=== PATIENT | male | born 1935 | race Two or more races ===

== ENCOUNTER 2018-12-03 06:18 | Inpatient (IN) | payer MEDICARE, OTHER ==
[~2018-12-03] VITALS: Ht 167.6 cm; Wt 71.2 kg
--- NOTE | 2018-12-03 07:24 | NUR ---
RN NOTES REPORT GIVEN TO AM NURSE FOR CONTINUITY OF CARE, PATIENT STABLE AT THIS TIME, REPOSITIONED FOR COMFORT, DAUGHTER AT BEDSIDE, PATIENT IS GABONESE SPEAKING.
--- NOTE | 2018-12-03 07:40 | NUR ---
CHIROPRACTOR SOLE PRACTITIONER NOTES PATIENT RECEIVED RESTING INSIDE ROOM. SLEEPING, EASILY AROUSABLE THROUGH VERBAL AND TACTILE STIMULI. BREATHING EVEN AND UNLABORED. NO ACUTE DISTRESS AT THIS TIME. [place] NP MADE AWARE OF PATIENT ARRIVAL. AWAITING ADMITTING ORDERS. DAUGHTER, ALEX AT BEDSIDE. WILL CONTINUE TO MONITOR. BED LOCKED AND IN LOW POSITION. BILATERAL UPPER SIDE RAILS UP AND LOCKED. CALL LIGHT WITHIN EASY REACH
[2018-12-03 08:00] VITALS: BP 112/59
--- NOTE | 2018-12-03 08:30 | NUR ---
BUSINESS ACCOUNT MANAGER NOTES PATIENT ADMITTED TO HOSPITAL AND REPORTED THAT THE REASON THEY CAME TO THE ER IS BECAUSE OF REDNESS ON RIGHT LEG. ALSO REPORTED THAT PATIENT HAD CATARACT REMOVAL ON OCT 2018. SKIN ASSESSMENT DONE, NO REDNESS OR SWELLING NOTED ON BLE. PERRLA. NO WHITISH DISCOLORATION NOTED ON RIGHT EYE. CRISELDA BYERS FELLER OPERATOR PRESENT IN UNIT, WILL COME AND SEE PATIENT. WILL CONTINUE TO MONITOR
[2018-12-03] MEDS ORDERED: PRED5DRO17 RIGHTEYE (08:42)
[2018-12-03] MEDS ORDERED: DICL2.5D RIGHTEYE (08:42)
[2018-12-03] MEDS ORDERED: MAGNESIUM HYDROXIDE 30 ML UDC PO PRN (10:30)
[2018-12-03] MEDS ORDERED: ACETAMINOPHEN 325 MG TABLET PO PRN (10:30)
[2018-12-03] MEDS ORDERED: MAG HYDROX/AL HYDROX/SIMETH 30 ML UDC PO PRN (10:30)
[2018-12-03] MEDS ORDERED: ONDANSETRON HCL/PF 4 MG/2 ML VIAL IVP PRN (10:30)
[2018-12-03] MEDS ORDERED: Z GUARD REMEDY 2 OZ OINT TP PRN (10:30)
[2018-12-03] MEDS ORDERED: HYDROCODONE/APAP 5/325MG 1 EACH TABLET PO PRN (10:30)
[2018-12-03 11:29] LABS: BASOPHILS # (AUTO) 0.1 /CMM (0.0-0.2); BASOPHILS % (AUTO) 0.9 % (0.0-2.0); EOSINOPHILS % (AUTO) 3.4 % (0.0-6.0); HEMATOCRIT 41 % (39-51); HEMOGLOBIN 13.7 g/dL (13.5-17.5); LYMPHOCYTES # (AUTO) 1.3 /CMM (0.8-4.8); MEAN CORPUSCULAR HGB CONC 33 g/dl (31.0-36.0); MEAN CORPUSCULAR VOLUME 87 fL (80-96); MONOCYTES # (AUTO) 0.4 /CMM (0.1-1.30); MONOCYTES % (AUTO) 7.3 % (2.0-12.0); NEUTROPHILS # (AUTO) 3.8 /CMM (1.8-8.9); NEUTROPHILS % (AUTO) 65.4 % (43.0-81.0); PLATELET COUNT (AUTO) 268 /CMM (150-450); RED BLOOD CELL COUNT(AUTO) 4.75 MIL/uL (4.5-6.0); WHITE BLOOD COUNT (AUTO) 5.8 K/uL (4.3-11.0)
[2018-12-03 11:35] LABS: ALANINE AMINOTRANSFERASE 14 U/L (12-78); ALBUMIN 2.7 g/dL (3.4-5.0); ALKALINE PHOSPHATASE 118 U/L (46-116); ASPARTATE AMINOTRANSFERASE 14 U/L (15-37); BILIRUBIN,TOTAL 0.4 mg/dL (0.2-1.0); CARBON DIOXIDE 30 mmol/L (21-32); CHLORIDE 106 mmol/L (98-107); CREATININE 0.8 mg/dL (0.6-1.3); GLUCOSE 89 mg/dL (74-106); POTASSIUM 3.7 mmol/L (3.5-5.1); SODIUM SERUM 139 mmol/L (136-145); TOTAL PROTEIN, SERUM 8.1 g/dL (6.4-8.2); UREA NITROGEN, BLOOD 21 mg/dL (7-18)
[2018-12-03 11:52] LABS: CHOLESTEROL 155 mg/dL (<200); HDL CHOLESTEROL 26 mg/dL (40-60); LDL 113 mg/dL (0-99); THYROID STIMULATING HORMONE 1.268 uIU/mL (0.358-3.74); TRIGLYCERIDES 114 mg/dL (30-150)
[2018-12-03] MEDS: ENOXAPARIN SODIUM 80 MG/0.8 ML DISP.SYRIN SQ SCH (13:43)
[2018-12-03 16:00] VITALS: BP 111/59
--- NOTE | 2018-12-03 18:35 | NUR ---
LPN CMA NOTES PATIENT RESTING INSIDE ROOM. SLEEPING, EASILY AROUSABLE THROUGH VERBAL AND TACTILE STIMULI. BREATHING EVEN AND UNLABORED. DENIES ANY PAIN OR DISCOMFORT AT THIS TIME. NO CHANGES IN LOC NOTED. PATIENT CALM AND RELAXED. ALL NURSING NEEDS ATTENDED AND MET. DUE MEDICATIONS GIVEN AND TOLERATED WELL. CONTINUE WITH TELEMETRY, SSIS ARCHITECT IN PLACE. SR WITH EPISODES OF INVERTED T WAVES, RATE 60-63. WILL ENDORSE TO INCOMING SHIFT FOR BONIFACIO. BED LOCKED AND IN LOW POSITION. BILATERAL UPPER SIDE RAILS UP AND LOCKED. CALL LIGHT WITHIN EASY REACH
--- NOTE | 2018-12-03 19:00 | NUR ---
FREIGHT CAR REPAIRER OPENING NOTES Received patient A/O x4, Malagasy speakin, on Armstrong's position on bed. On RA, no SOB/respiratory distress noted. On tele monitoring with SR with BBB. With DVT pump on L leg. With bearable 1/10 pain on the R leg, no swelling noted. Kept patient on comfortable position. Encouraged patient to verbalized for worsening pain. Kept bed low and locked, call light at bedside. Will continue to monitor accordingly.
[2018-12-03 20:00] VITALS: BP 110/56
[2018-12-04] VITALS: BP_SYST 106; BP_SYST 96; BP_DIAS 49; BP_DIAS 65
[2018-12-04] MEDS: ENOXAPARIN SODIUM 80 MG/0.8 ML DISP.SYRIN SQ SCH ×2 (00:07→12:26)
[2018-12-04 04:00] VITALS: BP 104/49
--- NOTE | 2018-12-04 06:03 | NUR ---
ACID SPLICER NOTES Patient asleep on bed on semi-Armstrong's position on bed. On RA, no SOB/respiratory distress noted. Denies discomfort at this time. Due meds given as ordered, no ASE noted. All nursing needs attended. No new complaints made. Endorsed to the next shift. Addendum: 12/04/18 at 0607 by KENNETH PEREZ RN On tele monitor with Sinus Bradycardia 58-59. Patient remained asymptomatic at this time.
[2018-12-04 06:37] LABS: BASOPHILS % (AUTO) 0.9 % (0.0-2.0); EOSINOPHILS % (AUTO) 4.1 % (0.0-6.0); HEMATOCRIT 38 % (39-51); LYMPHOCYTES # (AUTO) 1.3 /CMM (0.8-4.8); MEAN CORPUSCULAR HGB CONC 34 g/dl (31.0-36.0); MEAN CORPUSCULAR VOLUME 85 fL (80-96); MONOCYTES # (AUTO) 0.4 /CMM (0.1-1.30); MONOCYTES % (AUTO) 7.6 % (2.0-12.0); NEUTROPHILS # (AUTO) 3.7 /CMM (1.8-8.9); NEUTROPHILS % (AUTO) 64.4 % (43.0-81.0); PLATELET COUNT (AUTO) 275 /CMM (150-450); WHITE BLOOD COUNT (AUTO) 5.7 K/uL (4.3-11.0)
[2018-12-04 06:54] LABS: CALCIUM, SERUM 8.5 mg/dL (8.5-10.1); CARBON DIOXIDE 27 mmol/L (21-32); CHLORIDE 107 mmol/L (98-107); CREATININE 0.8 mg/dL (0.6-1.3); GLUCOSE 91 mg/dL (74-106); MAGNESIUM 2.1 mg/dL (1.8-2.4); PHOSPHORUS 3.1 mg/dL (2.5-4.9); POTASSIUM 3.7 mmol/L (3.5-5.1); SODIUM SERUM 143 mmol/L (136-145); UREA NITROGEN, BLOOD 23 mg/dL (7-18)
--- NOTE | 2018-12-04 07:27 | NUR ---
FOLDER SEAMER AUTOMATIC NOTES PATIENT RECEIVED RESTING INSIDE ROOM, SLEEPING, EASILY AROUSABLE THROUGH VERBAL AND TACTILE STIMULI. BREATHING EVEN AND UNLABORED. NO ACUTE DISTRESS AT THIS TIME. DENIES ANY PAIN OR DISCOMFORT. NO CHANGES IN LOC NOTED. PATIENT CALM AND RELAXED. WILL CONTINUE TO MONITOR. BED LOCKED AND IN LOW POSITION. BILATERAL UPPER SIDE RAILS UP AND LOCKED. CALL LIGHT WITHIN EASY REACH
[2018-12-04 08:00] VITALS: BP 109/60
[2018-12-04 16:00] VITALS: BP 118/64
--- NOTE | 2018-12-04 18:42 | NUR ---
MS RN NOTES PATIENT RESTING INSIDE ROOM. AWAKE, ALERT AND ORIENTED, VERBALLY RESPONSIVE AND RESPONDS TO VERBAL AND TACTILE STIMULI. BREATHING EVEN AND UNLABORED. NO CHANGES IN LOC NOTED AT THIS TIME. DENIES ANY PAIN OR DISCOMFORT. NO SWELLING OR REDNESS NOTED ON LOWER EXTREMITIES, PATIENT AMBULATORY, ABLE TO AMBULATE UNIT HALLWAY SAFELY. ALL NURSING NEEDS ATTENDED AND MET. PATIENT KEPT CLEAN, DRY AND COMFORTABLE. WILL ENDORSE TO INCOMING SHIFT FOR BONIFACIO. BED LOCKED AND IN LOW POSITION. BILATERAL UPPER SIDE RAILS UP AND LOCKED. CALL LIGHT WITHIN EASY REACH
--- NOTE | 2018-12-04 19:40 | NUR ---
RN OPENING NOTES RECEIVED REPORT FROM [facility] JOSÉ ANTONIO FAJARDO. FOUND Pt AWAKE, RESTING IN BED, WATCHING TV. DAUGHTER VISITING AT BEDSIDE. Pt's RESPIRATIONS EVEN AND UNLABORED. NO S/S OF ACUTE DISTRESS OR SOB NOTED. NO C/O PAIN AT THIS TIME. IV ACCESS ON LAC #20G, SL. SAFETY MEASURES IN PLACE. BED LOW, LOCKED, HOB ELEVATED, SIDE RAILS UP, CALL LIGHT AND BEDSIDE TABLE WITHIN REACH. WILL CONTINUE TO MONITOR Pt's CONDITION AND SAFETY THROUGHOUT THE NIGHT.
[2018-12-04 20:00] VITALS: BP 111/59
[2018-12-05] MEDS: ENOXAPARIN SODIUM 80 MG/0.8 ML DISP.SYRIN SQ SCH ×2 (01:07→13:11)
--- NOTE | 2018-12-05 07:33 | NUR ---
RN CLOSING NOTES NO SIGNIFICANT CHANGES IN Pt's CONDITION. Pt REMAINED STABLE THROUGHOUT THE SHIFT. NO S/S OF ACUTE DISTRESS OR SOB NOTED DURING THE NIGHT. RESPIRATIONS EVEN AND UNLABORED. SAFETY MEASURES IN PLACE. ENDORSED TO DAYSHIFT RN FOR Pt's BONIFACIO.
[2018-12-05 08:00] VITALS: BP 117/71
--- NOTE | 2018-12-05 08:00 | NUR ---
m/s theater usher: initial assessment received pt in bed awake, a/ox4; english speaking only. daughter at bedside to translate. no c/o pain or any discomfort. rle still swelling. rle elevated with pillow. instructed to call for assistance. will continue to monitor.
[2018-12-05] MEDS ORDERED: APIX5TAB PO ×3 (11:02→11:07)
--- NOTE | 2018-12-05 14:41 | NUR ---
RN NOTES PT FOR DISCHARGE TODAY. CALLED AND INFORMED PT'S DAUGHTER ALEX JEAN-BAPTISTE @ [employer] # [phone] AND WILL COME AND TAKE PT'S HOME THIS AFTERNOON.
--- NOTE | 2018-12-05 18:19 | NUR ---
COLD PATCHER NOTES PATIENT DISCHARGED HOME IN STABLE CONDITION. A/O X 4. VITAL SIGNS TAKEN AND RECORDED. PHOTOS OF SKIN CONDITION TAKEN AND FILED ON CHART. BELONGINGS CHECKED, COUNTED AND SIGNED FORM. IV ACCESS AND NAME WRISTBAND REMOVED. HEALTH TEACHINGS GIVEN TO PT AND DAUGHTER ALEX, BOTH VERBALIZED UNDERSTANDING. PRESCRIPTION AND SCHEDULE OF CLINIC APPOINTMENT GIVEN TO DAUGHTER. PT LEFT UNIT @ 1810 VIA WHEELCHAIR ACCOMPANIED BY MANAGER INTERNAL AND PT'S DAUGHTER. CHARGE NURSE AWARE OF DISCHARGE.
== END 2018-12-05 18:00 | disposition home or self-care (01) | DRG 197 ==
LOC: TELE 06:18 → MED 12-04 10:14
PROVIDERS: ADMIT Nurse Practitioner Acute Care; ATTEND Nurse Practitioner Acute Care
DX: I82.411 Acute embolism and thrombosis of right femoral vein (principal); H26.9 Unspecified cataract; Z87.891 Personal history of nicotine dependence
CPT/HCPCS: 36415; 80048-TC; 80053-TC; 80061-TC; 83735-TC; 84100-TC; 84443-TC; 85025-TC; 87081-TC; G0378; J1650

== ENCOUNTER 2020-06-01 18:43 | Inpatient (IN) | payer MEDICARE, OTHER ==
[~2020-06-01] VITALS: Ht 167.6 cm; Wt 78.9 kg
[~2020-06-01 18:43] MED LIST: APIX5TAB PO; DICL2.5D RIGHTEYE; PRED5DRO17 RIGHTEYE
--- NOTE | 2020-06-01 18:43 | NUR ---
PT BIB SELF C/O L LOWER LEG SWELLING FOR 3 DAYS. PT IS AAOX4 QATARI SPEAKING ONLY, NOT IN RESPIRATORY DISTRESS, V/S STABLE, KEPT RESTED AND COMFORTABLE, WILL CONTINUE TO MONITOR.
--- NOTE | 2020-06-01 18:57 | NUR ---
AT BEDSIDE FOR EVAL.
[2020-06-01] MEDS ORDERED: HYDROCODONE/APAP 5/325MG TABLET PO ONE (19:00)
--- NOTE | 2020-06-01 19:00 | NUR ---
IV LINE ESTABLISHED BLOOD DRAWN AND SENT TO LAB.
[2020-06-01 19:14] LABS: BASOPHILS % (AUTO) 0.6 % (0.0-2.0); EOSINOPHILS % (AUTO) 1.9 % (0.0-6.0); HEMATOCRIT 40 % (39-51); HEMOGLOBIN 13.5 g/dL (13.5-17.5); LYMPHOCYTES % (AUTO) 13.9 % (20.0-44.0); MEAN CORPUSCULAR HGB CONC 34 g/dl (31.0-36.0); MEAN CORPUSCULAR VOLUME 88 fL (80-96); MONOCYTES # (AUTO) 0.4 /CMM (0.1-1.30); MONOCYTES % (AUTO) 5.7 % (2.0-12.0); NEUTROPHILS # (AUTO) 5.7 /CMM (1.8-8.9); NEUTROPHILS % (AUTO) 77.9 % (43.0-81.0); PLATELET COUNT (AUTO) 155 /CMM (150-450); RED BLOOD CELL COUNT(AUTO) 4.59 MIL/uL (4.5-6.0); WHITE BLOOD COUNT (AUTO) 7.3 K/uL (4.3-11.0)
[2020-06-01] MEDS ORDERED: HYDROCODONE/APAP 5/325MG TABLET ONE (19:17)
[2020-06-01 19:23] LABS: CARBON DIOXIDE 26 mmol/L (21-32); CHLORIDE 107 mmol/L (98-107); GLUCOSE 126 mg/dL (74-106); SODIUM SERUM 140 mmol/L (136-145); UREA NITROGEN, BLOOD 33 mg/dL (7-18)
--- NOTE | 2020-06-01 19:28 | NUR ---
PT MEDICATED. AND HOOKED TO MONITOR AND PULSE OX. VSS.
--- NOTE | 2020-06-01 19:31 | NUR ---
PER EMT HR IS HIGH 40'S. STATED MD AWARE. EKG ORDERED AND TROP LEVEL WELL.
[2020-06-01 19:36] LABS: ALANINE AMINOTRANSFERASE 19 U/L (12-78); ALBUMIN 2.8 g/dL (3.4-5.0); ALKALINE PHOSPHATASE 94 U/L (46-116); ASPARTATE AMINOTRANSFERASE 22 U/L (15-37); B-TYPE NATRIURETIC PEPTIDE 352 PG/ML (0-125); BILIRUBIN,DIRECT 0.1 mg/dL (0.0-0.2); BILIRUBIN,TOTAL 0.6 mg/dL (0.2-1.0); TOTAL PROTEIN, SERUM 8.1 g/dL (6.4-8.2)
--- NOTE | 2020-06-01 19:45 | NUR ---
US AT BEDSIDE
--- NOTE | 2020-06-01 20:17 | NUR ---
PT'S DAUGHTER, ALEX. STATED HE IS NOT ON BLOOD THINNERS. ALSO STATED HIS HR IS ALWAYS BEEN SABAS. MD AT BEDSIDE UPDATING PT'S DAUGHTER.
--- NOTE | 2020-06-01 20:19 | NUR ---
ASIA SWABBED AND SENT TO LAB.
--- NOTE | 2020-06-01 20:28 | NUR ---
US SPEAKING TO . PT POSITIVE FOR DVT L LEG. WILL BE STARTED ON HEPARIN.
[2020-06-01] MEDS ORDERED: HEPARIN INFUSION/D5W 500 ML IV PRN (20:30)
[2020-06-01] MEDS ORDERED: HEPARIN INFUSION/D5W 500 ML IV ONE (20:42)
[2020-06-01] MEDS ORDERED: HEPARIN SODIUM, PORCINE 5000 UNITS/1 ML VIAL ONE (20:50)
[2020-06-01] MEDS ORDERED: HEPARIN SODIUM, PORCINE 5000 UNITS/1 ML VIAL IV ONE (21:00)
--- NOTE | 2020-06-01 21:02 | NUR ---
STAMPING DIE MAKER BENCH NOTE: Received patient on heparin drip. Heparin drip started at 2102 in the ER. Heparin initiated at units/Hr 1450. aPTT 28.3, PT 10.8, INR 1.07, platelets 155. HCT 40, Hgb 135. Will assess for bleeding and continue to monitor.
--- NOTE | 2020-06-01 22:12 | NUR ---
REPORT GIVEN TO CLARIBEL CHOU FOR BONIFACIO
[2020-06-01 22:38] VITALS: BP 137/80
--- NOTE | 2020-06-01 22:38 | NUR ---
MICA MINER BLASTING ADMITTING NOTE: Received report from ER nurse, Charlie. Received patient on a gurney, awake and alert. Noted left leg edema, +2. Cap refill <3 seconds on all extremities and peripheral pulses present. Patient rates pain 7 on a 0-10 numerical scale and describes it as aching. Patient breathing well on room air. Breath sounds clear, breathing unlabored, and even. No SOB. No distress. Skin is intact, patient appears to be well nourished. Observed patient ambulate to the restroom. Patient ambulates steady. IV access on left AC, 18g. On heparin drip, started in the ER. Initial rate at 1450. Oriented patient to his room and educated patient on the use of the call light. Patient verbalized understanding. Safety precaution is in place, bed is in lowest position, brakes are on, side rails x2 are up, and call light is within reach. Will continue to monitor.
--- NOTE | 2020-06-01 22:45 | NUR ---
PT TRANSFERED PER ACLS PROTOCOL
[2020-06-01] MEDS ORDERED: ACETAMINOPHEN 325 MG TABLET PO PRN (23:00)
[2020-06-01] MEDS ORDERED: MAGNESIUM HYDROXIDE 30 ML UDC PO PRN (23:00)
[2020-06-01] MEDS ORDERED: ONDANSETRON HCL/PF 4 MG/2 ML VIAL IVP PRN (23:00)
[2020-06-01] MEDS ORDERED: MAG HYDROX/AL HYDROX/SIMETH 30 ML UDC PO PRN (23:00)
[2020-06-01] MEDS ORDERED: prednisoLONE ACETATE 1% SUSP 5 ML BOTTLE RIGHTEYE SCH (23:00)
[2020-06-01] MEDS ORDERED: Z GUARD REMEDY 2 OZ OINT TP PRN (23:00)
[2020-06-01] MEDS ORDERED: ZOLPIDEM TARTRATE 5 MG TABLET PO PRN (23:00)
[2020-06-01] MEDS ORDERED: HYDROCODONE/APAP 5/325MG TABLET PO PRN (23:00)
[2020-06-01 23:22] VITALS: BP 137/80
[2020-06-02] VITALS: BP 112/59
--- NOTE | 2020-06-02 03:21 | NUR ---
MS RN NOTE: Blood was drawn but still waiting for PTT result. Result is "pending."
--- NOTE | 2020-06-02 03:30 | NUR ---
ROVER TENDER NOTE: PTT result still pending.
--- NOTE | 2020-06-02 03:38 | NUR ---
FOOTWEAR SALES ASSOCIATE NOTE: PTT resulted in 103.2. Per weight based heparin dosing orders, hold heparin for one hour, then decrease drip by 3 units.
[2020-06-02 04:00] VITALS: BP 118/64
--- NOTE | 2020-06-02 04:00 | NUR ---
HYDRO OPERATOR NOTE: Heparin infusing at 1200 units/hr per heparin protocol. Will continue to monitor and assess for bleeding.
[2020-06-02 06:24] LABS: BASOPHILS % (AUTO) 0.7 % (0.0-2.0); EOSINOPHILS % (AUTO) 2.2 % (0.0-6.0); HEMATOCRIT 41 % (39-51); HEMOGLOBIN 13.5 g/dL (13.5-17.5); LYMPHOCYTES # (AUTO) 1.4 /CMM (0.8-4.8); LYMPHOCYTES % (AUTO) 21.3 % (20.0-44.0); MEAN CORPUSCULAR HGB CONC 33 g/dl (31.0-36.0); MEAN CORPUSCULAR VOLUME 88 fL (80-96); MONOCYTES # (AUTO) 0.5 /CMM (0.1-1.30); MONOCYTES % (AUTO) 7.3 % (2.0-12.0); NEUTROPHILS # (AUTO) 4.5 /CMM (1.8-8.9); NEUTROPHILS % (AUTO) 68.5 % (43.0-81.0); PLATELET COUNT (AUTO) 140 /CMM (150-450); RED BLOOD CELL COUNT(AUTO) 4.64 MIL/uL (4.5-6.0); WHITE BLOOD COUNT (AUTO) 6.5 K/uL (4.3-11.0)
--- NOTE | 2020-06-02 06:38 | NUR ---
UNDERWATER ROBOTICIST CLOSING NOTE: Patient in bed sleeping but easily aroused. Patient on room air and breathing well. No SOB or respiratory distress noted. Patient able to ambulate to the restroom. Heparin drip running at 1200 units/her per Heparin protocol. No bleeding noted. PTT ordered for 0900. Safety precaution is in place, bed in the lowest, brakes are on, side rails x2 are up, and call light is within reach. Will endorse to next shift.
[2020-06-02 06:42] LABS: CALCIUM, SERUM 8.3 mg/dL (8.5-10.1); CREATININE 0.7 mg/dL (0.6-1.3); PHOSPHORUS 3.1 mg/dL (2.5-4.9); POTASSIUM 3.5 mmol/L (3.5-5.1)
--- NOTE | 2020-06-02 07:25 | NUR ---
SCALE ADJUSTER/MED RECON PATIENT REPORTED NO HOME MEDICATION. CALLED AND SPOKE WITH ALEX-DAUGHTER, VERIFIED INFORMATION OBTAINED FROM THE PATIENT. PRIMARY RN TO NOTIFY MD FOR BONIFACIO. PHARMACY AWARE.
--- NOTE | 2020-06-02 07:30 | NUR ---
TELE/RN OPENING NOTES Received patient resting in bed, A&O x 4, romansh speaking. No complaints of pain and discomfort noted at this time. Breathing even and non-labored on RA, no SOB noted. No cardiac distress noted. On tele monitor, reading SB 51. IV access noted on L AC #18 , patent and intact, and running heparin at 1200 u/hr per protocol. No s/s of infection, bleeding, or infiltration. L leg edema noted, +2 pitting. Sensation from all peripheral extremities intact. Bed locked to its lowest position, side rails x 2 up, instructed patient to use call light when in need of assistance. Will continue to monitor for any changes of condition.
[2020-06-02 08:00] VITALS: BP 136/92
--- NOTE | 2020-06-02 08:00 | NUR ---
TELE/RN NOTES Asked Dr. Mendoza regarding whether to continue ER order of heparin drip for patient, no new orders yet. Referred to charge nurse, states Dr. Jain will look at case and will see if whether to continue drip order on the floor.
[2020-06-02] MEDS: DICLOFENAC 0.1% OPTH DROPS 5 ML BOTTLE RIGHTEYE SCH ×2 (08:56→09:00)
[2020-06-02] MEDS ORDERED: ENOXAPARIN SODIUM 80 MG/0.8 ML DISP.SYRIN SQ SCH (09:00)
--- NOTE | 2020-06-02 09:45 | NUR ---
TELE/RN NOTES Non-administered diclofenac eyedrops, med recon nurse clarified with family regarding medication, states patient does not use it. Notified MD.
--- NOTE | 2020-06-02 10:00 | NUR ---
TELE/RN NOTES Received PTT results from 0900, 65.1. Per protocol, there are no dosage adjustments (no changes), heparin drip remains to run at 1200 u/hr, PTT will be taken the next day. Followed protocol order, checked by charge nurse. Will continue to monitor for any changes in condition.
[2020-06-02] MEDS: ATORVASTATIN 10 MG TABLET PO SCH (10:42)
--- NOTE | 2020-06-02 11:04 | NUR ---
TELE/RN NOTE Pharmacy brought in new label to scan for heparin drip, still using the heparin bag from ER.
[2020-06-02] MEDS: HEPARIN INFUSION/D5W 500 ML IV PRN ×2 (11:11→19:07)
--- NOTE | 2020-06-02 12:34 | NUR ---
MS/RN NOTES Patient states he does not use diclofenac eyedrops, notified Dr. Mendoza at bedside, orders to discontinue it. Order carried out.
--- NOTE | 2020-06-02 15:02 | NUR ---
MS/RN NOTES Patient remains stable on heparin drip 1200 u/hr = 24 ml/hr, no bleeding noted. Will continue to monitor for any changes of condition.
[2020-06-02 16:00] VITALS: BP 120/68
--- NOTE | 2020-06-02 18:44 | NUR ---
MS/RN CLOSING NOTE Patient resting in bed, remains stable. VSS, afebrile, no SOB noted, no bleeding noted. Breathing even and non-labored on RA. No respiratory or cardiac distress noted. Denies any pain/discomfort throughout shift. IV access noted on L AC #18, patent and intact, running heparin drip 1200 u/hr (24 ml/hr), no bleeding on site noted. PTT will be taken in the morning. Patient is ambulatory, instructed patient to use call light when in need of assistance. Fall precautions maintained. Will endorse to night clerk.
--- NOTE | 2020-06-02 20:00 | NUR ---
MS RN NOTE: Patient in bed resting, awake and alert. Patient is English speaking only. Patient able to make needs known. Patient denies pain or discomfort at this time. Patient on room air. Breathing well, no sob, no respiratory distress. Breathing even and unlabored. Patient on heparin drip at 1200 units/hr, no signs of bleeding. IV access on Left AC 18 gauge, patent, intact, no infiltration, or redness. Safety precaution is in place, bed is in the lowest level, brakes are on, side rails x2 are up, and call light is within reach. Will continue to monitor.
[2020-06-02 20:43] VITALS: BP 118/56
--- NOTE | 2020-06-03 00:39 | NUR ---
MS RN NOTE: Endorsed patient to Maximiliano for continuity of care.
--- NOTE | 2020-06-03 00:40 | NUR ---
MS NOTE report recieved form stacy callejas. pt seen resting in bed with eyes closed in no apparent distress. heparin drip infusing to left ac #18. no s/s of bleeding or infiltration. will cont to monitor.
--- NOTE | 2020-06-03 07:06 | NUR ---
MS RN NOTE CLOSING: PT IN BED RESTING. IN NO APPARENT DISTRESS. NO S/S OF BLEEDING HEPARIN STILL INFUSING AT 1200 UNITS PER HOUR. TO LEFT AC 18 GUAGE. NO S/S OF INFILTRATOIN SAFETY PRECAUTIONS IN PLACE BED LOW LOCKED SRX2 WILL ENDORSE TO AM SHIFT. CALL LIGTH IN REACH.
--- NOTE | 2020-06-03 07:30 | NUR ---
RN OPENING NOTES RECEIVED PT IN BED. AWAKE ALERT AND ORIENTED X 3. THOUGH HE IS MOLDOVAN SPEAKING ONLY. NO CARDIAC OR RESPIRATORY DISTRESS NOTED. NO SOB NOTED. SATURATING WELL ON ROOM AIR. BREATHING EVEN AND UNLABORED. PT IS AMBULATORY WITH STEADY GAIT. IV ACCESS NOTED ON L AC G18. INTACT AND PATENT AND FLUSHING WELL. HEPARIN DRIP IS CURRENTLY INFUSING AT 1200 UNITS/HR. PT HAS NO S/S OF BLEEDING NOTED. SAFETY PRECAUTIONS IN PLACE BED LOW LOCKED SRX2. BED ALARM ON. CALL LIGHT WITHIN REACH. WILL CONT TO MONITOR.
--- NOTE | 2020-06-03 07:31 | NUR ---
HEPARIN DRIP HEPARIN DRIP CURRENTLY STILL INFUSING AT 1200 UNITS/HR. PTT THIS AM NOTED AT 68.9. PER HEPARIN DRIP PROTOCOLS NO CHANGES NEEDS TO BE MADE WITH DOSING. WILL CONTINUE WITH 1200 UNITS/HR. NO S/S OF BLEEDING NOTED WITH PT.
[2020-06-03 08:00] VITALS: BP 143/78
[2020-06-03] MEDS: ATORVASTATIN 10 MG TABLET PO SCH (08:17)
--- NOTE | 2020-06-03 11:50 | NUR ---
D/C HEPARIN DRIP PER DR. LAW D/C HEPARIN DRIP. AND HE WILL START PT ON XARELTO. NOTED AND CARRIED OUT.
[2020-06-03] MEDS ORDERED: RIVAROXABAN 15 MG TABLET PO SCH (14:00)
--- NOTE | 2020-06-03 15:30 | NUR ---
CALLED DAUGHTER CALLED DAUGHTER TO NOTIFY OF PTS DISCHARGE. PER DAUGHTER, SHE WILL PICK PT UP AROUND 5PM TODAY.
--- NOTE | 2020-06-03 16:00 | NUR ---
BODY CHECK BODY CHECK DONE. PTS SKIN IS INTACT. NO SKIN BREAKDOWN NOTED.
--- NOTE | 2020-06-03 17:00 | NUR ---
D/C HOME PT WAS PICKED UP BY HIS DAUGHTER VIA PRIVATE CARE. DAUGHTER WAS AMILCAR. ALL D/C INSTRUCTIONS GIVEN TO PT AND DAUGHTER. PRESCRIPTIONS AND D/C PACKET GIVEN AND EXPLAINED TO THE DAUGHTER AND PT WELL. PT AND RP VERBALIZED UNDERSTANDING. INSTRUCTED THAT IF PT EXPERIENCES THE SAME SYMPTOMS AGAIN, SOB OR CHEST PAIN TO SEEK MEDICAL ATTENT OR GO TO THE NEAREST ER. PT AND RP UNDERSTOOD. PT IS AWAKE ALERT AND ORIENTED X 3. THOUGH HE IS HEBREW SPEAKING ONLY. NO CARDIAC OR RESPIRATORY DISTRESS NOTED. NO SOB NOTED. SATURATING WELL ON ROOM AIR. BREATHING EVEN AND UNLABORED. PT IS AMBULATORY WITH STEADY GAIT. IV ACCESS NOTED ON L AC G18 WAS REMOVED. NO BLEEDING NOTED. PT LEFT IN STABLE CONDITION. ALL BELONGINGS BROUGHT BY THE PT AND INVENTORY DONE WELL. INVENTORY AND D/C PAPER WORKS SIGNED BY THE PT.
== END 2020-06-03 17:00 | disposition home or self-care (01) | DRG 280 ==
LOC: ER 18:48 → EDBD 21:58 → TELE 21:58 → MED 06-02 10:08
PROVIDERS: ADMIT Family Medicine
DX: I82.402 Acute embolism and thrombosis of unspecified deep veins of left lower extremity (principal); I21.A1 Myocardial infarction type 2; N17.0 Acute kidney failure with tubular necrosis; E44.0 Moderate protein-calorie malnutrition; J98.11 Atelectasis; I82.502 Chronic embolism and thrombosis of unspecified deep veins of left lower extremity; I11.0 Hypertensive heart disease with heart failure; I50.9 Heart failure, unspecified; Z87.891 Personal history of nicotine dependence; Z98.890 Other specified postprocedural states; Z79.899 Other long term (current) drug therapy; Z88.0 Allergy status to penicillin; R73.9 Hyperglycemia, unspecified; H26.9 Unspecified cataract; Z98.41 Cataract extraction status, right eye
CPT/HCPCS: 36415; 71045-TC; 80048-TC; 80061-TC; 80076-TC; 83735-TC; 83880; 84100-TC; 84484-TC; 85025-TC; 85730-TC; 87081-TC; 93307-TC; 93971-TC; C9803-CS; G0378; J1644

== ENCOUNTER 2020-07-15 12:54 | Emergency (ER) | payer MEDICARE, OTHER ==
[~2020-07-15] VITALS: Ht 167.6 cm; Wt 80.7 kg
--- NOTE | 2020-07-15 13:10 | NUR ---
ER BED 4 PT BIB SELF. CHIEF COMPLAINT OF RLQ ABD PAIN 3/10 AND RLE PAIN 6/10. NO DISTRESS NOTED. VS CHECKED, IV STARTED. BLOOD DRAW DONE. AWAITING TO BE SEEN BY MD.
[2020-07-15 13:23] LABS: BASOPHILS % (AUTO) 0.7 % (0.0-2.0); EOSINOPHILS % (AUTO) 2.4 % (0.0-6.0); HEMATOCRIT 40 % (39-51); HEMOGLOBIN 13.6 g/dL (13.5-17.5); LYMPHOCYTES # (AUTO) 1.3 /CMM (0.8-4.8); LYMPHOCYTES % (AUTO) 17.4 % (20.0-44.0); MEAN CORPUSCULAR HGB CONC 34 g/dl (31.0-36.0); MEAN CORPUSCULAR VOLUME 86 fL (80-96); MONOCYTES # (AUTO) 0.9 /CMM (0.1-1.30); MONOCYTES % (AUTO) 12.5 % (2.0-12.0); PLATELET COUNT (AUTO) 200 /CMM (150-450); RED BLOOD CELL COUNT(AUTO) 4.64 MIL/uL (4.5-6.0); WHITE BLOOD COUNT (AUTO) 7.4 K/uL (4.3-11.0)
--- NOTE | 2020-07-15 13:25 | NUR ---
DOPPLER VENOUS DOPPLER OF RLE COMPLETED.
[2020-07-15 13:31] LABS: CALCIUM, SERUM 8.5 mg/dL (8.5-10.1); CREATININE 1.1 mg/dL (0.6-1.3); POTASSIUM 3.7 mmol/L (3.5-5.1)
[2020-07-15 13:37] LABS: BILIRUBIN,DIRECT 0.2 mg/dL (0.0-0.2); BILIRUBIN,TOTAL 1.2 mg/dL (0.2-1.0); TOTAL PROTEIN, SERUM 8.1 g/dL (6.4-8.2)
[2020-07-15] MEDS ORDERED: ACETAMINOPHEN ES 500 MG TABLET ONE (13:50)
[2020-07-15 13:52] LABS: APPEARANCE,URINE Clear (CLEAR); BILIRUBIN,URINE Negative (NEGATIVE); BLOOD, URINE Negative Ery/uL (NEGATIVE); COLOR,URINE Yellow (YELLOW); KETONES,URINE Negative (NEGATIVE); LEUKOCYTE ESTERASE ,URINE Negative (NEGATIVE); NITRITE, URINE Negative (NEGATIVE); PROTEIN,URINE 100 mg/dl (NEGATIVE); UGLUCOSE Negative (NEGATIVE)
[2020-07-15 13:54] LABS: BACTERIA,URINE Few /HPF (None Seen); MUCUS,URINE Few /LPF (None Seen); RBC,URINE 0-1 /HPF (0-2); SQUAMOUS EPITHELIAL CELL,UR Many /HPF (None Seen)
[2020-07-15] MEDS ORDERED: RIVA10TA PO (13:54)
[2020-07-15] MEDS ORDERED: ACETAMINOPHEN ES 500 MG TABLET PO ONE (14:00)
--- NOTE | 2020-07-15 14:08 | NUR ---
D/C HOME Patient discharged to home in stable condition. Written and verbal after care instructions given. Patient verbalizes understanding of instruction.IV removed. Catheter intact and site benign. Pressure and 4x4 applied to site. No bleeding noted.
[2020-07-15 14:09] VITALS: BP 118/77
== END 2020-07-15 14:10 | disposition home or self-care (01) ==
LOC: ER 12:59
DX: M79.661 Pain in right lower leg (principal); R10.31 Right lower quadrant pain; Z90.89 Acquired absence of other organs; Z98.890 Other specified postprocedural states; Z88.0 Allergy status to penicillin; Z79.899 Other long term (current) drug therapy
CPT/HCPCS: 36415; 71045-TC; 80048-TC; 80076-TC; 81000-TC; 83690-TC; 85025-TC; 85730-TC; 93971-TC

== ENCOUNTER 2022-09-10 09:56 | Emergency (ER) | payer MEDICARE, OTHER ==
[~2022-09-10] VITALS: Ht 165.1 cm; Wt 72.6 kg
[~2022-09-10 09:56] MED LIST changes: -APIX5TAB PO; -DICL2.5D RIGHTEYE; -PRED5DRO17 RIGHTEYE; +RIVA10TA PO
--- NOTE | 2022-09-10 10:10 | NUR ---
BIB Daughter from Home "He has been having flu-like symptoms wednesday - now worse. Fever and blood in urine"
--- NOTE | 2022-09-10 10:15 | NUR ---
ESTABLISHED IV LINE 20G LEFT AC
[2022-09-10] MEDS ORDERED: CEFEPIME 1 GM in IV D5W 50 ML IV ONE (11:00)
[2022-09-10] MEDS ORDERED: VANCOMYCIN 1 GM in IV D5W 250 ML IV ONE (11:00)
--- NOTE | 2022-09-10 11:25 | NUR ---
BLOOD SAMPLE OBTAINED SENT TO LAB
[2022-09-10] MEDS ORDERED: APIX5TAB PO (11:34)
[2022-09-10] MEDS ORDERED: ATOR10TA PO (11:34)
[2022-09-10 11:42] LABS: BASOPHILS % (AUTO) 0.4 % (0.0-2.0); HEMATOCRIT 41 % (39-51); HEMOGLOBIN 13.9 g/dL (13.5-17.5); LYMPHOCYTES # (AUTO) 0.7 K/uL (0.8-4.8); LYMPHOCYTES % (AUTO) 7.8 % (20.0-44.0); MEAN CORPUSCULAR HGB CONC 34 g/dl (31.0-36.0); MEAN CORPUSCULAR VOLUME 87 fL (80-96); MONOCYTES # (AUTO) 0.7 K/uL (0.1-1.30); MONOCYTES % (AUTO) 8.4 % (2.0-12.0); NEUTROPHILS # (AUTO) 7.1 K/uL (1.8-8.9); NEUTROPHILS % (AUTO) 83.4 % (43.0-81.0); PLATELET COUNT (AUTO) 157 K/uL (150-450); WHITE BLOOD COUNT (AUTO) 8.5 K/uL (4.3-11.0)
--- NOTE | 2022-09-10 11:43 | NUR ---
COVID SWAB COLLECTED AND SENT TO LAB.
--- NOTE | 2022-09-10 12:16 | NUR ---
URINE SAMPLE OBTAINED SENT TO LAB
[2022-09-10 12:55] LABS: CALCIUM, SERUM 8.9 mg/dL (8.5-10.1); CARBON DIOXIDE 26 mmol/L (21-32); CHLORIDE 101 mmol/L (98-107); CREATININE 1.1 mg/dL (0.6-1.3); GLUCOSE 125 mg/dL (74-106); POTASSIUM 3.4 mmol/L (3.5-5.1); SODIUM SERUM 136 mmol/L (136-145); UREA NITROGEN, BLOOD 14 mg/dL (7-18)
[2022-09-10 12:58] LABS: ALANINE AMINOTRANSFERASE 18 U/L (12-78); ALBUMIN 3.3 g/dL (3.4-5.0); ALKALINE PHOSPHATASE 97 U/L (46-116); ASPARTATE AMINOTRANSFERASE 25 U/L (15-37); BILIRUBIN,DIRECT 0.2 mg/dL (0.0-0.2); BILIRUBIN,TOTAL 0.8 mg/dL (0.2-1.0); TOTAL PROTEIN, SERUM 8.6 g/dL (6.4-8.2)
[2022-09-10 13:45] LABS: BILIRUBIN,URINE NEGATIVE (NEGATIVE); COLOR,URINE YELLOW (YELLOW); LEUKOCYTE ESTERASE ,URINE NEGATIVE (NEGATIVE); NITRITE, URINE NEGATIVE (NEGATIVE); PROTEIN,URINE 1+ mg/dl (NEGATIVE); UGLUCOSE NEGATIVE (NEGATIVE)
[2022-09-10] MEDS ORDERED: GUAI1TBM19 PO (13:50)
[2022-09-10] MEDS ORDERED: BENZ-13 PO (13:50)
--- NOTE | 2022-09-10 14:04 | NUR ---
Patient discharged to home in stable condition. Written and verbal after care instructions given. Patient verbalizes understanding of instruction.
--- NOTE | 2022-09-10 14:04 | NUR ---
IV removed. Catheter intact and site benign. Pressure and 4x4 applied to site. No bleeding noted.
[2022-09-10 14:08] VITALS: BP 126/64
[2022-09-10 14:08] LABS: BACTERIA,URINE Rare /HPF (None Seen); SQUAMOUS EPITHELIAL CELL,UR Few /HPF (None Seen); WBC,URINE 0-2 /HPF (0-3)
== END 2022-09-10 14:04 | disposition home or self-care (01) ==
LOC: ER 10:01
DX: J06.9 Acute upper respiratory infection, unspecified (principal); B97.89 Other viral agents as the cause of diseases classified elsewhere; Z20.822 Contact with and (suspected) exposure to COVID-19; Z86.718 Personal history of other venous thrombosis and embolism; Z79.01 Long term (current) use of anticoagulants; Z88.0 Allergy status to penicillin; J98.11 Atelectasis; R50.9 Fever, unspecified; R05.9 Cough, unspecified; R31.9 Hematuria, unspecified; Z98.41 Cataract extraction status, right eye; Z98.890 Other specified postprocedural states
CPT/HCPCS: 99285; 96365; 71045; 96375; 87426; 93005; 84145; 85025; 80048; 87086; 83605; 80076; 81001; 36415; 84484; 85730; 87040 ×2; 87081; J3370; J7060; J0692; C9803

== ENCOUNTER 2022-12-01 17:46 | Emergency (ER) | payer MEDICARE, OTHER ==
[~2022-12-01] VITALS: Ht 167.6 cm; Wt 77.6 kg
[~2022-12-01 17:46] MED LIST changes: +APIX5TAB PO; +ATOR10TA PO; +BENZ-13 PO; +GUAI1TBM19 PO; -RIVA10TA PO
--- NOTE | 2022-12-01 20:19 | NUR ---
BIBDAUGHTER. L TESTICLE SWELLING & PAIN WITH HEMATURIA X 5 DAYS. AAOX4. Vitals Checked
--- NOTE | 2022-12-01 20:20 | NUR ---
Urine sample collected and sent to lab.
--- NOTE | 2022-12-01 21:20 | NUR ---
Blood drawn and sent to lab.
[2022-12-01] MEDS ORDERED: LEVOFLOXACIN 500 MG /D5W 100ML 500 MG/100 ML PIGGYBACK IV ONE (21:30)
[2022-12-01] MEDS ORDERED: LEVOFLOXACIN 500 MG /D5W 100ML 100 ML IV ONE (21:33)
[2022-12-01 21:39] LABS: BASOPHILS # (AUTO) 0.1 K/uL (0.0-0.2); BASOPHILS % (AUTO) 0.7 % (0.0-2.0); EOSINOPHILS % (AUTO) 4.8 % (0.0-6.0); HEMATOCRIT 34 % (39-51); LYMPHOCYTES # (AUTO) 1.7 K/uL (0.8-4.8); MEAN CORPUSCULAR HGB CONC 33 g/dl (31.0-36.0); MEAN CORPUSCULAR VOLUME 81 fL (80-96); MONOCYTES # (AUTO) 0.8 K/uL (0.1-1.30); MONOCYTES % (AUTO) 10.5 % (2.0-12.0); NEUTROPHILS # (AUTO) 4.6 K/uL (1.8-8.9); PLATELET COUNT (AUTO) 287 K/uL (150-450); RED BLOOD CELL COUNT(AUTO) 4.15 MIL/uL (4.5-6.0); WHITE BLOOD COUNT (AUTO) 7.6 K/uL (4.3-11.0)
[2022-12-01 22:10] LABS: CALCIUM, SERUM 8.7 mg/dL (8.5-10.1); CARBON DIOXIDE 28 mmol/L (21-32); CHLORIDE 105 mmol/L (98-107); CREATININE 0.8 mg/dL (0.6-1.3); GLUCOSE 102 mg/dL (74-106); POTASSIUM 4.1 mmol/L (3.5-5.1); SODIUM SERUM 138 mmol/L (136-145); UREA NITROGEN, BLOOD 19 mg/dL (7-18)
[2022-12-01 22:36] LABS: BILIRUBIN,URINE NEGATIVE (NEGATIVE); COLOR,URINE YELLOW (YELLOW); LEUKOCYTE ESTERASE ,URINE NEGATIVE (NEGATIVE); NITRITE, URINE NEGATIVE (NEGATIVE); PROTEIN,URINE TRACE mg/dl (NEGATIVE); UGLUCOSE NEGATIVE (NEGATIVE); UROBILINOGEN,URINE 0.2 EU/dL (0.2)
[2022-12-01] MEDS ORDERED: LEVO500T90 PO (22:36)
[2022-12-01 22:56] VITALS: BP 138/68
--- NOTE | 2022-12-01 22:56 | NUR ---
IV removed. Catheter intact and site benign. Pressure and 4x4 applied to site. No bleeding noted.
--- NOTE | 2022-12-01 22:56 | NUR ---
Patient discharged to home in stable condition. Written and verbal after care instructions given. Patient verbalizes understanding of instruction.
[2022-12-01 23:00] LABS: RBC,URINE NONE SEEN /HPF (0-2); WBC,URINE NONE SEEN /HPF (0-3)
[2022-12-01 23:01] LABS: BACTERIA,URINE None seen /HPF (None Seen); SQUAMOUS EPITHELIAL CELL,UR 0-2 /HPF (None Seen)
== END 2022-12-01 22:57 | disposition home or self-care (01) ==
LOC: ER 17:59
DX: N45.1 Epididymitis (principal); Z98.890 Other specified postprocedural states; Z79.899 Other long term (current) drug therapy; Z88.0 Allergy status to penicillin
CPT/HCPCS: 99285; 96365; 76870; 85025; 80048; 81001; 36415; 85730; J1956; A4223

== ENCOUNTER 2023-03-24 19:35 | Inpatient (IN) | payer OTHER, MEDICARE ==
[~2023-03-24] VITALS: Ht 167.6 cm; Wt 75.3 kg
[~2023-03-24 19:35] MED LIST changes: +LEVO500T90 PO
--- NOTE | 2023-03-24 20:42 | NUR ---
Patient AOx4, able to express his concerns. Patietn states he has been feeling nauseous, vomitting (dark and he has also notice blood on penus. Discussed plan of care, patient verbalized agreement.
[2023-03-24] MEDS ORDERED: IV NS 0.9% 1,000 ML BAG IV ONE (21:00)
[2023-03-24] MEDS ORDERED: PANTOPRAZOLE 40 MG VIAL IV ONE (21:00)
[2023-03-24 21:08] LABS: BASOPHILS % (AUTO) 0.1 % (0.0-2.0); EOSINOPHILS % (AUTO) 0.1 % (0.0-6.0); HEMATOCRIT 40 % (39-51); HEMOGLOBIN 12.7 g/dL (13.5-17.5); LYMPHOCYTES # (AUTO) 0.9 K/uL (0.8-4.8); LYMPHOCYTES % (AUTO) 6.6 % (20.0-44.0); MEAN CORPUSCULAR HGB CONC 32 g/dl (31.0-36.0); MEAN CORPUSCULAR VOLUME 75 fL (80-96); MONOCYTES # (AUTO) 1.2 K/uL (0.1-1.30); MONOCYTES % (AUTO) 8.8 % (2.0-12.0); NEUTROPHILS # (AUTO) 11.8 K/uL (1.8-8.9); NEUTROPHILS % (AUTO) 84.4 % (43.0-81.0); PLATELET COUNT (AUTO) 208 K/uL (150-450); RED BLOOD CELL COUNT(AUTO) 5.24 MIL/uL (4.5-6.0)
[2023-03-24] MEDS ORDERED: PANTOPRAZOLE 40 MG VIAL ONE (21:15)
[2023-03-24 21:16] LABS: CALCIUM, SERUM 9.5 mg/dL (8.5-10.1); CARBON DIOXIDE 23 mmol/L (21-32); CHLORIDE 104 mmol/L (98-107); CREATININE 1.6 mg/dL (0.6-1.3); GLUCOSE 136 mg/dL (74-106); POTASSIUM 4.1 mmol/L (3.5-5.1); SODIUM SERUM 141 mmol/L (136-145); UREA NITROGEN, BLOOD 21 mg/dL (7-18)
[2023-03-24 21:22] LABS: ALANINE AMINOTRANSFERASE 19 U/L (12-78); ALBUMIN 3.4 g/dL (3.4-5.0); ALKALINE PHOSPHATASE 132 U/L (46-116); ASPARTATE AMINOTRANSFERASE 20 U/L (15-37); BILIRUBIN,DIRECT 0.2 mg/dL (0.0-0.2); BILIRUBIN,TOTAL 0.9 mg/dL (0.2-1.0); LIPASE 59 U/L (73-393); TOTAL PROTEIN, SERUM 8.8 g/dL (6.4-8.2)
[2023-03-24 21:36] LABS: BAND % (MANUAL) 1 % (0.0-5.0); LYMPHOCYTES % (MANUAL) 6 % (16-48); MONOCYTES % (MANUAL) 10 % (0-11.0); NEUTROPHILS % (MANUAL) 83 (42-76)
[2023-03-24] MEDS ORDERED: ASPIRIN 81 MG TAB.CHEW PO ONE (22:00)
[2023-03-24] MEDS ORDERED: Magnesium 1GM/D5W 100ML PREMIX PIGGYBACK IV ONE (22:00)
[2023-03-24] MEDS ORDERED: Magnesium 1GM/D5W 100ML PREMIX 100 ML IV ONE ×2 (22:04→22:58)
[2023-03-24] MEDS ORDERED: ASPIRIN 81 MG TAB.CHEW ONE (22:05)
--- NOTE | 2023-03-24 22:53 | NUR ---
Kang Inserted, 600 ml urine output. Patient tolerated well
--- NOTE | 2023-03-24 22:55 | NUR ---
Urine collected, sent to lab
[2023-03-24 23:20] LABS: COLOR,URINE RED (YELLOW)
[2023-03-24 23:24] LABS: BACTERIA,URINE Rare /HPF (None Seen); RBC,URINE TOO NUMEROUS TO COUN /HPF (0-2); SQUAMOUS EPITHELIAL CELL,UR Rare /HPF (None Seen); WBC,URINE 0-2 /HPF (0-3)
--- NOTE | 2023-03-24 23:46 | NUR ---
RE PAGED PANEL
[2023-03-25] MEDS ORDERED: ONDANSETRON HCL/PF 4 MG/2 ML VIAL IVP PRN
[2023-03-25] MEDS ORDERED: ACETAMINOPHEN 325 MG TABLET PO PRN
--- NOTE | 2023-03-25 00:01 | NUR ---
RM 114-2
--- NOTE | 2023-03-25 00:31 | NUR ---
Report given to Eunice CHOU/[facility]
[2023-03-25 00:50] LABS: HEMOGLOBIN 10.9 g/dL (13.5-17.5)
[2023-03-25 01:00] VITALS: BP 128/60
--- NOTE | 2023-03-25 01:00 | NUR ---
MINGLER OPERATOR NOTES: RECEIVED REPORT FROM MANOJ CHOU. PT TRANSFERRED TO [facility] FROM ER WITH ACLS PROTOCOL. PLACED IN ROOM 114 BED 2. ACCOMPANIED BY DAUGHTER. PT AWAKE, ALERT/ORIENTED X4 AND VERBALLY RESPONSIVE. ARABIC SPEAKING ONLY. ON ROOM AIR AND PT TOLERATED WELL. O2 SAT 97%. IV ACCESS ON RFA#18G INTACT AND PATENT. NO S/S OF INFILTRATIONS. NO C/O PAIN OR DISCOMFORT. NO ACUTE DISTRESS. INSERTED A NEW ESTEBAN BECAUSE PREVIOUS ON WAS ACCIDENTLY PULLED OUT. STILL NOTED BLOODY URINE. BODY ASSESSMENT DONE. NO OPEN SKIN OR SKIN DISCOLORATION NOTED. ALL SAFETY MEASURES IN PLACE. BED IN LOWEST POSTITION AND LOCKED. SIDE RAILS UP X2, PLACE CALL LIGHT WITH IN REACH. WILL CONTINUE TO MONITOR
--- NOTE | 2023-03-25 01:10 | NUR ---
0110 Patient's daughter Mely accompanied patient and let it known that patient requests to be DNR/DNI and they wish to respect it. RN Eunice witnessed conversation, MELTER LOADER Daily notified.
[2023-03-25] MEDS: IV NS 0.9% 1,000 ML IV PRN ×2 (01:21→20:30)
[2023-03-25 04:00] VITALS: BP 128/75
--- NOTE | 2023-03-25 04:35 | NUR ---
RN NOTES: PT NOTED WITH GROSS HEMATURIA. C/O OF GENERALIZED PAIN. TYLENOL GIVEN. NOTIFIED PACKAGING SPECIALIST EVELYN. ORDER TO INSERT 3 WAY ESTEBAN AND DO CONTINUOUS BLADDER IRRIGATION. ORDER NOTED AND CARRIED OUT.
[2023-03-25] MEDS ORDERED: HYDROMORPHONE 1 MG/1 ML DISP.SYRIN IV PRN (06:00)
--- NOTE | 2023-03-25 06:07 | NUR ---
RN NOTES: PT STILL C/O SEVERE PAIN ON LOWER ABDOMEN. NOTIFIED CAR SHUNTER. CHIQUIS. ORDER- DILAUDID 1MG/1ML INJ.
[2023-03-25 06:27] LABS: BASOPHILS # (AUTO) 0.1 K/uL (0.0-0.2); BASOPHILS % (AUTO) 0.5 % (0.0-2.0); HEMATOCRIT 34 % (39-51); HEMOGLOBIN 11.2 g/dL (13.5-17.5); LYMPHOCYTES # (AUTO) 1.4 K/uL (0.8-4.8); LYMPHOCYTES % (AUTO) 14.5 % (20.0-44.0); MEAN CORPUSCULAR HGB CONC 33 g/dl (31.0-36.0); MEAN CORPUSCULAR VOLUME 76 fL (80-96); MONOCYTES # (AUTO) 1.1 K/uL (0.1-1.30); MONOCYTES % (AUTO) 10.7 % (2.0-12.0); NEUTROPHILS # (AUTO) 7.3 K/uL (1.8-8.9); NEUTROPHILS % (AUTO) 73.3 % (43.0-81.0); PLATELET COUNT (AUTO) 199 K/uL (150-450); WHITE BLOOD COUNT (AUTO) 9.9 K/uL (4.3-11.0)
--- NOTE | 2023-03-25 06:45 | NUR ---
RN CLOSING NOTES: PT SLEEPING IN BED BUT EASILY AROUSABLE, AWAKE, ALERT/ORIENTED X4 AND VERBALLY RESPONSIVE. GREEK SPEAKING ONLY. ON ROOM AIR AND PT TOLERATED WELL. O2 SAT 95%. IV ACCESS ON RFA#18G INTACT AND PATENT. NO S/S OF INFILTRATIONS. NS RUNNING 75CC/H, PT C/O PAIN OR DISCOMFORT DILAUDID GIVEN . FOLLY CATH IN PLACE STILL NOTED BLOODY URINE. ALL SAFETY MEASURES IN PLACE. BED IN LOWEST POSTITION AND LOCKED. SIDE RAILS UP X2, PLACE CALL LIGHT WITH IN REACH. WILL ENDORSE TO MORNING SHIFT NURSE
[2023-03-25 06:57] LABS: IRON, SERUM 63 ug/dl (50-175); TOTAL IRON BINDING CAPACITY 309 ug/dl (250-450)
--- NOTE | 2023-03-25 07:08 | NUR ---
RN NOTES RECEIVED PT ON BED, AWAKE, ALERT/ORIENTED X4 AND VERBALLY RESPONSIVE. TELUGU SPEAKING ONLY. ON ROOM AIR AND PT TOLERATED WELL. O2 SAT 95%. IV ACCESS ON RFA#18G INTACT AND PATENT. NO S/S OF INFILTRATIONS. NS RUNNING 75CC/H, 3 WAY ESTEBAN BLADDER IRRIGATION RUNNING , NOTED LIGHT RRED BLOODY URINE. ALL SAFETY MEASURES IN PLACE. BED IN LOWEST POSITION AND LOCKED. SIDE RAILS UP X2, CALL LIGHT WITHIN EASY REACH CONTINUE TO MONITOR.
[2023-03-25 07:09] LABS: PROSTATE SPECIFIC ANTIGEN SCR 52.42 ng/mL (0.00-4.00)
[2023-03-25 07:11] LABS: FERRITIN 23 ng/mL (8-388)
[2023-03-25 07:54] LABS: CALCIUM, SERUM 8.7 mg/dL (8.5-10.1); CREATININE 1.3 mg/dL (0.6-1.3); MAGNESIUM 2.4 mg/dL (1.8-2.4); PHOSPHORUS 2.9 mg/dL (2.5-4.9); POTASSIUM 3.9 mmol/L (3.5-5.1)
[2023-03-25 08:00] VITALS: BP 146/91
[2023-03-25] MEDS: PANTOPRAZOLE 40 MG VIAL IV SCH ×2 (08:29→21:14)
[2023-03-25] MEDS ORDERED: IV NS 0.9% 250 ML IV ONE (11:31)
[2023-03-25] MEDS ORDERED: IOHEXOL-350 100 ML VIAL IV ONE (11:31)
[2023-03-25] MEDS ORDERED: CT SWABBABLE VALVE TRANS SET 1 EA INFUS.SET MC ONE (11:31)
[2023-03-25 12:00] VITALS: BP 107/56
--- NOTE | 2023-03-25 12:00 | NUR ---
RN NOTES LARGE AMOUNT OF BLOOD CLOTS NOTED DURING BLADDER IRRIGATION , DR WARNER NOTIFED, CONTINUE TO MONITOR
[2023-03-25 13:11] LABS: HEMOGLOBIN 9.9 g/dL (13.5-17.5)
[2023-03-25 16:00] VITALS: BP 107/56
[2023-03-25] MEDS: FERROUS SULFATE (325 MG) 325 MG/TAB TABLET PO SCH (17:33)
[2023-03-25] MEDS: BICALUTAMIDE 50 MG TABLET PO SCH (17:33)
--- NOTE | 2023-03-25 18:11 | NUR ---
RN NOTES PT ON BLADDER IRRIGATION , LIGHT RED URINE OUT PUT NOTED, VSS STABLE , PT DENIES ANY DISTESS , SUPPORTIVE FAMILY AT THE BEDSIDE, WILL ENDORSE TO TENTER FRAME BACK TENDER NURSE FOR CONTINUITY OF CARE .
--- NOTE | 2023-03-25 19:10 | NUR ---
ACCOUNTING ADMINISTRATOR OPENING NOTES - RECEIVED PATIENT AWAKE IN BED, DAUGHTER PRESENT IN ROOM. A/O X4, BARROW AND GREENLANDIC SPEAKING. BREATHING EVEN AND NON-LABORED ON ROOM AIR. DENIES PAIN, NAUSEA OR VOMITING AT THIS TIME. 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 HAS THE FF IV ACCESS: RIGHT ANTECUBITAL #20G AND SALINE LOCKED; RIGHT FOREARM #18G WITH NS RUNNING AT 75 ML/HR. NO S/S OF INFILTRATION NOTED. HAS 3-WAY ESTEBAN CATHETER CONNECTED TO CONTINUOUS BLADDER IRRIGATION DRAINING HEMATURIA TO BAG BY GRAVITY. SAFETY PRECAUTIONS IN PLACE: BED LOCKED AND IN LOW POSITION, SIDE RAILS UP X3, CALL LIGHT WITHIN REACH. WILL CONTINUE PLAN OF CARE.
[2023-03-25 20:00] VITALS: BP_SYST 100; BP_SYST 91; BP_DIAS 49; BP_DIAS 50
[2023-03-25] MEDS: ATORVASTATIN 10 MG TABLET PO SCH (21:14)
[2023-03-26] VITALS (14 sets, daily range): BP systolic 98–107; BP diastolic 43–86
[2023-03-26 05:52] LABS: BASOPHILS % (AUTO) 0.5 % (0.0-2.0); HEMATOCRIT 24 % (39-51); HEMOGLOBIN 7.7 g/dL (13.5-17.5); LYMPHOCYTES # (AUTO) 1.4 K/uL (0.8-4.8); LYMPHOCYTES % (AUTO) 16.3 % (20.0-44.0); MEAN CORPUSCULAR HGB CONC 32 g/dl (31.0-36.0); MEAN CORPUSCULAR VOLUME 77 fL (80-96); MONOCYTES % (AUTO) 11.9 % (2.0-12.0); NEUTROPHILS # (AUTO) 5.9 K/uL (1.8-8.9); NEUTROPHILS % (AUTO) 67.3 % (43.0-81.0); PLATELET COUNT (AUTO) 148 K/uL (150-450); RED BLOOD CELL COUNT(AUTO) 3.13 MIL/uL (4.5-6.0); WHITE BLOOD COUNT (AUTO) 8.7 K/uL (4.3-11.0)
[2023-03-26 06:03] LABS: CALCIUM, SERUM 7.9 mg/dL (8.5-10.1); CREATININE 0.9 mg/dL (0.6-1.3); PHOSPHORUS 2.7 mg/dL (2.5-4.9); POTASSIUM 3.8 mmol/L (3.5-5.1)
--- NOTE | 2023-03-26 06:41 | NUR ---
COMMUTER TRAIN OPERATOR CLOSING NOTES - PATIENT SLEEPING, EASY TO AROUSE. NO CARDIAC OR RESPIRATORY DISTRESS THROUGHOUT THE NIGHT. NO C/O PAIN OR DISCOMFORT. TELE MONITOR SHOWS SINUS RHYTHM WITH BBB AT 70-90 BPM. RIGHT ANTECUBITAL AND RIGHT FOREARM IV ACCESS INTACT, PATENT AND FLUSHING. DARK TO LIGHT RED URINE NOTED WITH CONTINUOUS BLADDER IRRIGATION. KEPT NPO. ALL DUE MEDS GIVEN AND NEEDS ATTENDED. SAFETY PRECAUTIONS MAINTAINED. WILL ENDORSE TO NEXT SHIFT FOR BONIFACIO.
[2023-03-26] MEDS ORDERED: ANESTHESIA TRAY IN PYXIS 1 EA TRAY MC ONE (06:59)
[2023-03-26] MEDS ORDERED: FENTANYL PF 100MCG/2ML AMPUL ONE (07:00)
--- NOTE | 2023-03-26 08:55 | NUR ---
PATIENT ARRIVED FROM OR AT 08:50, AWAKE, ON ROOM AIR WITH SAT 98%. UNDERWENT CYSTOSCOPY W/FULGURATION UNDER GEN ANESTHESIA. CONDITION STABLE, ALERT/ ORIENTED X 4, FAMILY AT BEDSIDE, VS: 105/86, 75, 17, TEMP 98.4. IV ACCESS RIGHT AC AND RIGHT HAND, NS RUNNING AT 75 ML/HR. ESTEBAN CATHETER IN PLACE, DRAINING BY GRAVITY, BLADDER IRRIGATION D/C. SAFETY MEASURES IMPLEMENTED, BED LOCKED AND IN LOWEST POSITION, CALL LIGHT WITHIN REACH, WILL CONTINUE TO MONITOR.
[2023-03-26] MEDS: BICALUTAMIDE 50 MG TABLET PO SCH (09:10)
[2023-03-26] MEDS: PANTOPRAZOLE 40 MG VIAL IV SCH ×2 (09:10→21:24)
[2023-03-26] MEDS: FERROUS SULFATE (325 MG) 325 MG/TAB TABLET PO SCH ×2 (09:10→16:24)
[2023-03-26] MEDS: IV NS 0.9% 1,000 ML IV PRN (12:36)
--- NOTE | 2023-03-26 18:27 | NUR ---
RN CLOSING NOTE PATIENT SLEEPING, EASY TO AROUSE. NO C/O PAIN OR DISCOMFORT. TELE MONITOR SHOWS SINUS RHYTHM WITH BBB AT 70-90 BPM. RIGHT ANTECUBITAL AND RIGHT FOREARM IV ACCESS INTACT, PATENT AND FLUSHING. ALL DUE MEDS GIVEN AND NEEDS ATTENDED. SAFETY PRECAUTIONS MAINTAINED. WILL ENDORSE TO NEXT SHIFT FOR BONIFACIO.
--- NOTE | 2023-03-26 18:57 | NUR ---
PATIENT GETTING ONE BAG RBC TRANSFUSED, CONDITION STABLE, NO DISTRESS NOTED. WILL ENDORSE TO THE NEXT SHIFT NURSE CATHY TO CONTINUE.
--- NOTE | 2023-03-26 20:00 | NUR ---
FICTION WRITER opening NOTE RECEIVED PATIENT IN BED AWAKE A/OX3, S/P CYSTOSCOPY NO C/O PAIN OR DISCOMFORT. TELE MONITOR SHOWS SINUS RHYTHM AT 70-90 BPM NO SOB NO DISTRESS NOTED ON R/A 97%. RIGHT ANTECUBITAL AND RIGHT FOREARM IV ACCESS INTACT, PATENT AND FLUSHING.PRBC ON PROGRESS AT THIS TIME NO ASE NOTED .WITH F/C INTACT AND PATENT WITH YELLOWISH URINE OUTPUT. ALL DUE MEDS GIVEN AND NEEDS ATTENDED. SAFETY PRECAUTIONS MAINTAINED. WILL CONTINUE TO MONITOR PTS .DAUGHTER AT BEDSIDE UPDATED WITH PTS CONDITION.
[2023-03-26] MEDS: ATORVASTATIN 10 MG TABLET PO SCH (21:24)
--- NOTE | 2023-03-26 22:52 | NUR ---
PNEUMATIC JACK OPERATOR NOTES PRBC COMPLETED AT THIS TIME 2252HRS WITH NO ASE NOTED V/S STABLE AFEBRILE.
--- NOTE | 2023-03-26 23:00 | NUR ---
telecasting engineer notes ivf ns at 75cc/hr in progress.
[2023-03-27] VITALS (11 sets, daily range): BP systolic 92–121; BP diastolic 42–61
--- NOTE | 2023-03-27 06:00 | NUR ---
MOSAICIST NOTES PTS REMAIN IN BED AWAKE ALERT AND RESPONSIVE , V/S STABLE AFEBRILE . ON R/A NO SOB NO DISTRESS NOTED .WILL ENDORSE TO RN DAY SHIFT FOR CONTINUITY OF CARE.
[2023-03-27 06:29] LABS: BASOPHILS % (AUTO) 0.3 % (0.0-2.0); EOSINOPHILS % (AUTO) 0.4 % (0.0-6.0); HEMATOCRIT 21 % (39-51); HEMOGLOBIN 7.1 g/dL (13.5-17.5); LYMPHOCYTES # (AUTO) 0.9 K/uL (0.8-4.8); LYMPHOCYTES % (AUTO) 11.6 % (20.0-44.0); MEAN CORPUSCULAR HGB CONC 33 g/dl (31.0-36.0); MEAN CORPUSCULAR VOLUME 77 fL (80-96); MONOCYTES # (AUTO) 0.7 K/uL (0.1-1.30); MONOCYTES % (AUTO) 9.4 % (2.0-12.0); NEUTROPHILS # (AUTO) 5.9 K/uL (1.8-8.9); NEUTROPHILS % (AUTO) 78.3 % (43.0-81.0); PLATELET COUNT (AUTO) 118 K/uL (150-450); RED BLOOD CELL COUNT(AUTO) 2.78 MIL/uL (4.5-6.0); WHITE BLOOD COUNT (AUTO) 7.5 K/uL (4.3-11.0)
[2023-03-27 06:46] LABS: ALANINE AMINOTRANSFERASE 16 U/L (12-78); ALBUMIN 1.9 g/dL (3.4-5.0); ALKALINE PHOSPHATASE 72 U/L (46-116); ASPARTATE AMINOTRANSFERASE 16 U/L (15-37); BILIRUBIN,TOTAL 0.5 mg/dL (0.2-1.0); CALCIUM, SERUM 7.7 mg/dL (8.5-10.1); CARBON DIOXIDE 25 mmol/L (21-32); CHLORIDE 109 mmol/L (98-107); CREATININE 0.9 mg/dL (0.6-1.3); GLUCOSE 110 mg/dL (74-106); MAGNESIUM 1.9 mg/dL (1.8-2.4); PHOSPHORUS 2.8 mg/dL (2.5-4.9); SODIUM SERUM 141 mmol/L (136-145); TOTAL PROTEIN, SERUM 5.3 g/dL (6.4-8.2); UREA NITROGEN, BLOOD 13 mg/dL (7-18)
[2023-03-27] MEDS: IV NS 0.9% 1,000 ML IV PRN ×2 (06:52→23:32)
--- NOTE | 2023-03-27 07:05 | NUR ---
[employer] SALESPERSON OPEN NOTE: ALERT AND ORIENTED TIMES 4. UNLABORED BREATHING AT ROOM AIR. SKI TOPPER SINUS SABAS 54. RIGHT FOREARM IV G18 PATENT WITH IVF OF NS 75ML/HR. RIGHT AC SALINE LOCKED G20. ESTEBAN CATHETER WITH YELLOW URINE. HOB ELEVATED, BILATERAL HALF SIDE RAILS UP X2. BED IN LOW POSITION, LOCKED AND EXIT ALARM ON. CALL LIGHT IN REACH. DAUGHTER AB BED SIDE.
[2023-03-27] MEDS: PANTOPRAZOLE 40 MG VIAL IV SCH ×2 (08:43→20:58)
[2023-03-27] MEDS: BICALUTAMIDE 50 MG TABLET PO SCH (08:43)
[2023-03-27] MEDS: FERROUS SULFATE (325 MG) 325 MG/TAB TABLET PO SCH ×2 (08:44→16:57)
--- NOTE | 2023-03-27 10:15 | NUR ---
1000: PEDRO WARNER INFORMED PATIENT HGB 7.1 HCT 21 PLATELETS 118. BP 94/45 HR 55 TODAY. PER PEDRO WARNER WILL ORDER ONE MORE UNIT OF PRBC, KEEP PATIENT ONE MORE DAY AND WILL BE TALKING TO FAMILY TO INFORM.
--- NOTE | 2023-03-27 11:02 | NUR ---
LAB INFORMED OR ORDERS FOR TYPE AND SCREEN AND BLOOD TRANSFUSION ORDERS, PER ETHEL WILL LET US KNOW WHEN BLOOD READY. PATIENT AND DAUGHTER STATED THE PEDRO WARNER ALREADY TALKED TO THEM AND ARE AWARE OF ORDERS.
--- NOTE | 2023-03-27 18:50 | NUR ---
MED SURGE RN CLOSING NOTE: ALERT X4. UNLABORED BREATHING AT ROOM AIR. SKIN IS WARM AND DRY. MOIST ORAL MUCOSA. RIGHT FOREARM IV WITH IVF OF NS75ML/HR, PATENT NO S/S OF COMPLICATIONS. HOB ELEVATED. BILATERAL HALF SIDE RAILS UP X2. BED IN LOW POSITION, LOCKED , EXIT ALARM SUPERVISOR ENGINES ROAD LIGHT IN REACH. DAUGHTER AT BEDSIDE.
--- NOTE | 2023-03-27 20:00 | NUR ---
LEAD COATER OPENING NOTE RECEIVED PATIENT IN BED AWAKE A/OX3, S/P BLOOD TRANSFUSION , NO ASE NOTED.NO SOB NO DISTRESS NOTED NO C/O PAIN OR DISCOMFORT. TELE MONITOR SHOWS SINUS RHYTHM AT 70-80 BPM ON R/A 97%. RIGHT ANTECUBITAL AND RIGHT FOREARM IV ACCESS INTACT.IV FLUID OF NS AT 75CC/HR INFUSING WELL .WITH F/C INTACT AND PATENT WITH YELLOWISH URINE OUTPUT. ALL DUE MEDS GIVEN AND NEEDS ATTENDED.DAUGHTER AT BEDSIDE UPDATED WITH PTS CONDITION .SAFETY PRECAUTIONS MAINTAINED. WILL CONTINUE TO MONITOR PTS .
[2023-03-27] MEDS: ATORVASTATIN 10 MG TABLET PO SCH (21:05)
[2023-03-28] VITALS: BP 100/72
[2023-03-28 04:00] VITALS: BP 102/72
[2023-03-28 06:15] LABS: BASOPHILS % (AUTO) 0.6 % (0.0-2.0); EOSINOPHILS % (AUTO) 5.1 % (0.0-6.0); HEMATOCRIT 25 % (39-51); HEMOGLOBIN 8.3 g/dL (13.5-17.5); LYMPHOCYTES # (AUTO) 1.3 K/uL (0.8-4.8); LYMPHOCYTES % (AUTO) 18.2 % (20.0-44.0); MEAN CORPUSCULAR HGB CONC 33 g/dl (31.0-36.0); MEAN CORPUSCULAR VOLUME 80 fL (80-96); MONOCYTES # (AUTO) 0.7 K/uL (0.1-1.30); MONOCYTES % (AUTO) 10.8 % (2.0-12.0); NEUTROPHILS # (AUTO) 4.5 K/uL (1.8-8.9); NEUTROPHILS % (AUTO) 65.3 % (43.0-81.0); PLATELET COUNT (AUTO) 130 K/uL (150-450); RED BLOOD CELL COUNT(AUTO) 3.13 MIL/uL (4.5-6.0); WHITE BLOOD COUNT (AUTO) 6.9 K/uL (4.3-11.0)
--- NOTE | 2023-03-28 07:00 | NUR ---
RFID STRATEGIST OPENING NOTE PATIENT AWAKE, ALERT AND ORIENTED X4. PATIENT PORTUGUESE SPEAKING, 02 SAT IN 100%, NO RESPIRATORY DISTRESS NOTED. IV ACCESS TO RIGHT AC #20G, RFA #18 INFUSING NS IV AT 75ML/HR. PATIENT DENIES SOB, AND DENIES PAIN AT PRESENT. F/C DRAINING CLEAR YELLOW URINE. SAFETY MEASURES IN PLACE. BED LOCKED TO THE LOWEST POSITION, CALL LIGHT AND TABLE WITHIN REACH. PATIENT'S DAUGHTER AT BED SIDE. CONT. TO MONITOR.
[2023-03-28 07:03] LABS: CALCIUM, SERUM 7.5 mg/dL (8.5-10.1); CREATININE 0.8 mg/dL (0.6-1.3); MAGNESIUM 1.7 mg/dL (1.8-2.4); PHOSPHORUS 2.8 mg/dL (2.5-4.9); POTASSIUM 3.8 mmol/L (3.5-5.1)
--- NOTE | 2023-03-28 07:10 | NUR ---
BOARD DESIGN ENGINEER NOTES PTS REMAIN IN BED AWAKE ALERT AND RESPONSIVE , V/S STABLE AFEBRILE . ON R/A NO SOB NO DISTRESS NOTED .WILL ENDORSE TO RN DAY SHIFT FOR CONTINUITY OF CARE.
[2023-03-28 08:00] VITALS: BP 109/56
[2023-03-28] MEDS ORDERED: NITR100C6 PO (08:01)
[2023-03-28] MEDS: Magnesium 1GM/D5W 100ML PREMIX 100 ML IV SCH ×2 (08:38→12:01)
[2023-03-28] MEDS: PANTOPRAZOLE 40 MG VIAL IV SCH (08:39)
[2023-03-28] MEDS: FERROUS SULFATE (325 MG) 325 MG/TAB TABLET PO SCH (09:05)
[2023-03-28] MEDS: BICALUTAMIDE 50 MG TABLET PO SCH (09:06)
--- NOTE | 2023-03-28 09:51 | NUR ---
ms rn note per Alvaro Saul dnp ok to keep Kang cath and connect to leg bag and f\u with urologist dr Cerda outpatient
--- NOTE | 2023-03-28 13:00 | NUR ---
FELT CEMENTER DISCHARGE NOTE PATIENT A/A/OX4. 02 SAT IN ROOM AIR 99%, NO S/S OF RESPIRATORY DISTRESS NOTED, PATIENT DENIES PAIN. DISCHARGE INSTRUCTIONS GIVEN TO PATIENT AND PATIENT'S DAUGHTER (ALEX), ALL DISCHARGE INSTRUCTIONS GIVEN IN [place], INCLUDING MEDICATION TO CONTINUE AT HOME, NAME, PURPOSE AND POSSIBLE SIDE EFFECT. PATIENT IS GOING HOME WITH ESTEBAN CATHETER IN PLACE, ESTEBAN CATHETER CARE AND LEG BAG CARE EXPLAINED TO PATIENT AND PATIENT'S DAUGHTER. PATIENT'S DAUGHTER VERBALIZED UNDERSTANDING DISCHARGE INSTRUCTIONS. TWO DIFFERENT ESTEBAN CATHETER BAGS GIVEN, LEG BAG AND DRAINING BAG. ESTEBAN CATH IS DRAINING CLEAR YELLOW URINE. 950ML EMPTIED PRIOR DISCHARGE. PATIENT DENIES PAIN. PATIENT WILL FOLLOW UP UROLOGY APPOINTMENT NEXT WEEK. PATIENT INSTRUCTED IF HE DEVELOPS BLOOD IN URINE, HE NEEDS TO GO TO EMERGENCY ROOM, OR CALL 911. IV ACCESS X2 REMOVED, CATHETER TIP INTACT AND NO S/S OF INFILTRATION NOTED. PRESSURE DRESSING APPLIED. PATIENT IS GOING HOME VIA W/C, ACCOMPANIED BY PATIENT'S DAUGHTER AND STAFF ASSOCIATE DIRECTOR FINANCE.
== END 2023-03-28 13:30 | disposition home or self-care (01) | DRG 952 ==
LOC: ER 19:37 → TELE1 23:07 → MEDSG1 03-27 08:06
PROVIDERS: ADMIT Nurse Practitioner Acute Care; ATTEND Nurse Practitioner Acute Care
PROC: 0TCB8ZZ Extirpation of Matter from Bladder, Via Natural or Artificial Opening Endoscopic (ICD-10-PCS; principal; 2023-03-26)
PROC: 0T5B8ZZ Destruction of Bladder, Via Natural or Artificial Opening Endoscopic (ICD-10-PCS; 2023-03-26)
PROC: 0V508ZZ Destruction of Prostate, Via Natural or Artificial Opening Endoscopic (ICD-10-PCS; 2023-03-26)
PROC: 30233N1 Transfusion of Nonautologous Red Blood Cells into Peripheral Vein, Percutaneous Approach (ICD-10-PCS; 2023-03-26)
DX: I86.2 Pelvic varices (principal); N17.0 Acute kidney failure with tubular necrosis; I21.A1 Myocardial infarction type 2; K29.71 Gastritis, unspecified, with bleeding; K86.2 Cyst of pancreas; N13.30 Unspecified hydronephrosis; D62 Acute posthemorrhagic anemia; N42.1 Congestion and hemorrhage of prostate; N40.1 Benign prostatic hyperplasia with lower urinary tract symptoms; J98.11 Atelectasis; D50.9 Iron deficiency anemia, unspecified; D72.829 Elevated white blood cell count, unspecified; Z88.0 Allergy status to penicillin; Z79.01 Long term (current) use of anticoagulants; Z86.718 Personal history of other venous thrombosis and embolism; Z87.891 Personal history of nicotine dependence; E83.42 Hypomagnesemia; R91.8 Other nonspecific abnormal finding of lung field; N32.89 Other specified disorders of bladder; K21.9 Gastro-esophageal reflux disease without esophagitis; R33.8 Other retention of urine
CPT/HCPCS: 36415; 71045-TC; 74178; 80048-TC; 80053-TC; 80061-TC; 80076-TC; 81001; 82728-TC; 83540-TC; 83690-TC; 83735-TC; 84100-TC; 84153-TC; 84154-TC; 84484-TC; 85025-TC; 85027-TC; 85730-TC; 86850-TC; 87081-TC; 93307-TC; A4217; A4223; C9113; G0378; J1100; J1170; J2405; J2704; J2765; J3010; J3475; J3490; J7030; J7040; J7050; J7060; P9016; Q9967

== ENCOUNTER 2023-07-14 21:19 | Emergency (ER) | payer MEDICARE, OTHER ==
[~2023-07-14] VITALS: Ht 170.2 cm; Wt 74.8 kg
[~2023-07-14 21:19] MED LIST changes: -APIX5TAB PO; -BENZ-13 PO; +FINA5TAB3 PO; -GUAI1TBM19 PO; -LEVO500T90 PO
[2023-07-14 21:57] LABS: BASOPHILS % (AUTO) 0.4 % (0.0-2.0); EOSINOPHILS # (AUTO) 0.2 K/uL (0.0-0.7); EOSINOPHILS % (AUTO) 1.6 % (0.0-6.0); HEMATOCRIT 34 % (39-51); LYMPHOCYTES # (AUTO) 1.2 K/uL (0.8-4.8); LYMPHOCYTES % (AUTO) 11.1 % (20.0-44.0); MEAN CORPUSCULAR HEMOGLOBIN 23 PG (26.0-33.0); MEAN CORPUSCULAR HGB CONC 32 g/dl (31.0-36.0); MEAN CORPUSCULAR VOLUME 72 fL (80-96); MONOCYTES % (AUTO) 9.2 % (2.0-12.0); NEUTROPHILS # (AUTO) 8.1 K/uL (1.8-8.9); NEUTROPHILS % (AUTO) 77.7 % (43.0-81.0); PLATELET COUNT (AUTO) 239 K/uL (150-450); RED BLOOD CELL COUNT(AUTO) 4.76 MIL/uL (4.5-6.0); RED CELL DISTRIBUTION WIDTH 16.8 % (11.5-15.0); WHITE BLOOD COUNT (AUTO) 10.5 K/uL (4.3-11.0)
[2023-07-14 22:04] LABS: CALCIUM, SERUM 8.9 mg/dL (8.5-10.1); CREATININE 0.9 mg/dL (0.6-1.3)
[2023-07-14 22:08] LABS: INR 1.08 (0.91-1.10); PARTIAL THROMBOPLASTIN TIME 33.9 SEC (24.3-34.3); PROTHROMBIN TIME 11.4 SECS (9.2-11.1)
[2023-07-14 22:09] LABS: ALBUMIN 2.9 g/dL (3.4-5.0); BILIRUBIN,DIRECT 0.1 mg/dL (0.0-0.2); BILIRUBIN,TOTAL 0.6 mg/dL (0.2-1.0); TOTAL PROTEIN, SERUM 8.3 g/dL (6.4-8.2)
[2023-07-14 23:07] LABS: APPEARANCE,URINE CLOUDY (CLEAR); BILIRUBIN,URINE NEGATIVE (NEGATIVE); BLOOD, URINE 3+ Ery/uL (NEGATIVE); COLOR,URINE ORANGE (YELLOW); KETONES,URINE NEGATIVE (NEGATIVE); LEUKOCYTE ESTERASE ,URINE 2+ (NEGATIVE); NITRITE, URINE POSITIVE (NEGATIVE); PH,URINE 6.5 (5.0-8.0); PROTEIN,URINE 1+ mg/dl (NEGATIVE); UGLUCOSE NEGATIVE (NEGATIVE); UROBILINOGEN,URINE 0.2 EU/dL (0.2)
[2023-07-14 23:30] LABS: ADD URINE CULTURE YES; BACTERIA,URINE 3+ /HPF (None Seen); MUCUS,URINE Moderate /LPF (None Seen); RBC,URINE 81-100 /HPF (0-2); SQUAMOUS EPITHELIAL CELL,UR None Seen /HPF (None Seen); WBC,URINE TOO NUMEROUS TO COUN /HPF (0-3)
[2023-07-15] MEDS ORDERED: CIPR500T5 PO (00:23)
[2023-07-15 00:47] VITALS: BP 141/71; TEMP 98.5; O2SAT 98
== END 2023-07-15 00:48 | disposition home or self-care (01) ==
LOC: ER 21:24
DX: T83.098A Other mechanical complication of other urinary catheter, initial encounter (principal); N39.0 Urinary tract infection, site not specified; R31.9 Hematuria, unspecified; E78.5 Hyperlipidemia, unspecified; Z79.899 Other long term (current) drug therapy
CPT/HCPCS: 36415; 80048-TC; 80076-TC; 81001; 83690-TC; 85025-TC; 85730-TC; 87086-TC

== ENCOUNTER 2023-08-31 23:27 | Emergency (ER) | payer MEDICARE, OTHER ==
[~2023-08-31] VITALS: Ht 165.1 cm; Wt 74.8 kg
[~2023-08-31 23:27] MED LIST changes: +CIPR500T5 PO
[2023-09-01] VITALS: BP 158/88; TEMP 98
[2023-09-01 00:43] VITALS: O2SAT 99
== END 2023-09-01 00:43 | disposition home or self-care (01) ==
LOC: ER 23:31
DX: T83.091A Other mechanical complication of indwelling urethral catheter, initial encounter (principal); E78.5 Hyperlipidemia, unspecified; Z90.89 Acquired absence of other organs; Z88.0 Allergy status to penicillin

== ENCOUNTER 2023-09-11 16:16 | Emergency (ER) | payer MEDICARE, OTHER ==
[~2023-09-11] VITALS: Ht 165.1 cm; Wt 74.8 kg
[2023-09-11 17:44] LABS: APPEARANCE,URINE CLOUDY (CLEAR); BILIRUBIN,URINE 2+ (NEGATIVE); BLOOD, URINE 3+ Ery/uL (NEGATIVE); COLOR,URINE AMBER (YELLOW); KETONES,URINE TRACE mg/dL (NEGATIVE); LEUKOCYTE ESTERASE ,URINE TRACE (NEGATIVE); NITRITE, URINE POSITIVE (NEGATIVE); PH,URINE 6.5 (5.0-8.0); PROTEIN,URINE 3+ mg/dl (NEGATIVE); UGLUCOSE NEGATIVE (NEGATIVE)
[2023-09-11 17:50] LABS: RBC,URINE TOO NUMEROUS TO COUN /HPF (0-2)
[2023-09-11 17:51] LABS: ADD URINE CULTURE YES; WBC,URINE 0-2 /HPF (0-3)
[2023-09-11 18:00] LABS: BACTERIA,URINE Few /HPF (None Seen); SQUAMOUS EPITHELIAL CELL,UR Few /HPF (None Seen)
[2023-09-11 19:46] VITALS: BP 135/85; TEMP 98.7; O2SAT 100
== END 2023-09-11 18:50 | disposition home or self-care (01) ==
LOC: ER 16:16
DX: N39.0 Urinary tract infection, site not specified (principal); R31.9 Hematuria, unspecified; E78.5 Hyperlipidemia, unspecified; N40.0 Benign prostatic hyperplasia without lower urinary tract symptoms; Z98.890 Other specified postprocedural states; Z79.899 Other long term (current) drug therapy; Z88.0 Allergy status to penicillin
CPT/HCPCS: 81001; 87086-TC

== ENCOUNTER 2023-10-28 20:05 | Inpatient (IN) | payer OTHER, MEDICARE ==
[~2023-10-28] VITALS: Ht 165.1 cm; Wt 86.2 kg
[2023-10-28 23:24] LABS: BASOPHILS % (AUTO) 0.6 % (0.0-2.0); EOSINOPHILS % (AUTO) 0.6 % (0.0-6.0); HEMATOCRIT 32 % (39-51); HEMOGLOBIN 10.1 g/dL (13.5-17.5); LYMPHOCYTES # (AUTO) 0.8 K/uL (0.8-4.8); LYMPHOCYTES % (AUTO) 12.9 % (20.0-44.0); MEAN CORPUSCULAR HEMOGLOBIN 23 PG (26.0-33.0); MEAN CORPUSCULAR HGB CONC 32 g/dl (31.0-36.0); MEAN CORPUSCULAR VOLUME 71 fL (80-96); MONOCYTES # (AUTO) 0.8 K/uL (0.1-1.30); MONOCYTES % (AUTO) 12.1 % (2.0-12.0); NEUTROPHILS # (AUTO) 4.7 K/uL (1.8-8.9); NEUTROPHILS % (AUTO) 73.8 % (43.0-81.0); PLATELET COUNT (AUTO) 189 K/uL (150-450); RED BLOOD CELL COUNT(AUTO) 4.47 MIL/uL (4.5-6.0); RED CELL DISTRIBUTION WIDTH 16.7 % (11.5-15.0); WHITE BLOOD COUNT (AUTO) 6.4 K/uL (4.3-11.0)
[2023-10-28 23:43] LABS: INR 1.09 (0.91-1.10); PARTIAL THROMBOPLASTIN TIME 26.9 SEC (24.3-34.3); PROTHROMBIN TIME 11.5 SECS (9.2-11.1)
[2023-10-28 23:52] LABS: ALANINE AMINOTRANSFERASE 6 U/L (12-78); ALBUMIN 2.8 g/dL (3.4-5.0); ALKALINE PHOSPHATASE 99 U/L (46-116); ASPARTATE AMINOTRANSFERASE 13 U/L (15-37); BILIRUBIN,DIRECT 0.1 mg/dL (0.0-0.2); BILIRUBIN,TOTAL 0.4 mg/dL (0.2-1.0); CALCIUM, SERUM 8.7 mg/dL (8.5-10.1); CARBON DIOXIDE 26 mmol/L (21-32); CHLORIDE 102 mmol/L (98-107); CREATININE 0.9 mg/dL (0.6-1.3); GLUCOSE 102 mg/dL (74-106); POTASSIUM 3.6 mmol/L (3.5-5.1); SODIUM SERUM 136 mmol/L (136-145); TOTAL PROTEIN, SERUM 8.1 g/dL (6.4-8.2); UREA NITROGEN, BLOOD 14 mg/dL (7-18)
[2023-10-29 00:05] LABS: APPEARANCE,URINE SLIGHTLY CLOUDY (CLEAR); BILIRUBIN,URINE NEGATIVE (NEGATIVE); BLOOD, URINE 1+ Ery/uL (NEGATIVE); COLOR,URINE YELLOW (YELLOW); KETONES,URINE NEGATIVE (NEGATIVE); LEUKOCYTE ESTERASE ,URINE 2+ (NEGATIVE); NITRITE, URINE POSITIVE (NEGATIVE); PROTEIN,URINE 1+ mg/dl (NEGATIVE); UGLUCOSE NEGATIVE (NEGATIVE); UROBILINOGEN,URINE 0.2 EU/dL (0.2)
[2023-10-29] MEDS ORDERED: CIPROFLOXACIN IV RTU 400 MG in PREMIX 1 EA IV SCH (00:30)
[2023-10-29] MEDS ORDERED: CIPROFLOXACIN IV RTU 200 ML IV ONE (00:32)
[2023-10-29 00:33] LABS: ADD URINE CULTURE YES; BACTERIA,URINE Few /HPF (None Seen); SQUAMOUS EPITHELIAL CELL,UR Rare /HPF (None Seen)
[2023-10-29 00:49] LABS: ANISOCYTOSIS 1+; BAND % (MANUAL) 4 % (0.0-5.0); BASOPHILS % (MANUAL) 0 % (0.0-2.0); EOSINOPHILS % (MANUAL) 0 % (0-4); LYMPHOCYTES % (MANUAL) 11 % (16-48); MONOCYTES % (MANUAL) 10 % (0-11.0); NEUTROPHILS % (MANUAL) 75 (42-76); PLATELET ESTIMATE ADEQUATE
[2023-10-29] MEDS ORDERED: ZOLPIDEM TARTRATE 5 MG TABLET PO PRN (03:30)
[2023-10-29] MEDS ORDERED: Z GUARD REMEDY 4 OZ OINT TP PRN (03:30)
[2023-10-29] MEDS ORDERED: MAG HYDROX/AL HYDROX/SIMETH 30 ML UDC PO PRN (03:30)
[2023-10-29] MEDS ORDERED: ONDANSETRON HCL/PF 4 MG/2 ML VIAL IVP PRN (03:30)
[2023-10-29] MEDS ORDERED: MAGNESIUM HYDROXIDE 30 ML UDC PO PRN (03:30)
[2023-10-29] MEDS: CIPROFLOXACIN IV RTU 400 MG in PREMIX 1 EA IV SCH ×2 (03:50→15:30)
[2023-10-29 05:36] VITALS: O2SAT 98
[2023-10-29] MEDS ORDERED: METH1TAB69 PO (08:02)
[2023-10-29] MEDS: FINASTERIDE (5 MG) 5 MG TABLET PO SCH (09:00)
[2023-10-29 09:19] LABS: BASOPHILS % (AUTO) 0.7 % (0.0-2.0); EOSINOPHILS % (AUTO) 0.4 % (0.0-6.0); HEMATOCRIT 29 % (39-51); HEMOGLOBIN 9.4 g/dL (13.5-17.5); LYMPHOCYTES # (AUTO) 0.9 K/uL (0.8-4.8); LYMPHOCYTES % (AUTO) 16.8 % (20.0-44.0); MEAN CORPUSCULAR HEMOGLOBIN 23 PG (26.0-33.0); MEAN CORPUSCULAR HGB CONC 32 g/dl (31.0-36.0); MEAN CORPUSCULAR VOLUME 70 fL (80-96); MONOCYTES # (AUTO) 0.9 K/uL (0.1-1.30); NEUTROPHILS # (AUTO) 3.6 K/uL (1.8-8.9); NEUTROPHILS % (AUTO) 66.1 % (43.0-81.0); PLATELET COUNT (AUTO) 183 K/uL (150-450); RED BLOOD CELL COUNT(AUTO) 4.14 MIL/uL (4.5-6.0); RED CELL DISTRIBUTION WIDTH 16.2 % (11.5-15.0); WHITE BLOOD COUNT (AUTO) 5.5 K/uL (4.3-11.0)
[2023-10-29 09:26] LABS: CALCIUM, SERUM 8.4 mg/dL (8.5-10.1); CREATININE 0.9 mg/dL (0.6-1.3); POTASSIUM 3.5 mmol/L (3.5-5.1)
[2023-10-29 09:33] LABS: THYROID STIMULATING HORMONE 0.685 uIU/mL (0.358-3.74)
[2023-10-29 13:23] LABS: BAND % (MANUAL) 1 % (0.0-5.0); NEUTROPHILS % (MANUAL) 67 (42-76)
[2023-10-29 13:24] LABS: ANISOCYTOSIS 1+; BASOPHILS % (MANUAL) 0 % (0.0-2.0); EOSINOPHILS % (MANUAL) 0 % (0-4); HYPOCHROMASIA 1+; LYMPHOCYTES % (MANUAL) 18 % (16-48); MONOCYTES % (MANUAL) 14 % (0-11.0); OVALOCYTES 1+; PLATELET ESTIMATE ADEQUATE
[2023-10-29 20:00] VITALS: BP 126/70; TEMP 100.1; O2SAT 93
[2023-10-29] MEDS: ACETAMINOPHEN 325 MG TABLET PO PRN (20:35)
[2023-10-30] MEDS: CIPROFLOXACIN IV RTU 400 MG in PREMIX 1 EA IV SCH (03:20)
[2023-10-30 07:02] LABS: BASOPHILS % (AUTO) 0.4 % (0.0-2.0); EOSINOPHILS % (AUTO) 0.1 % (0.0-6.0); HEMATOCRIT 30 % (39-51); HEMOGLOBIN 9.7 g/dL (13.5-17.5); LYMPHOCYTES # (AUTO) 1.3 K/uL (0.8-4.8); LYMPHOCYTES % (AUTO) 16.2 % (20.0-44.0); MEAN CORPUSCULAR HEMOGLOBIN 23 PG (26.0-33.0); MEAN CORPUSCULAR HGB CONC 33 g/dl (31.0-36.0); MEAN CORPUSCULAR VOLUME 70 fL (80-96); MONOCYTES # (AUTO) 1.2 K/uL (0.1-1.30); MONOCYTES % (AUTO) 14.1 % (2.0-12.0); NEUTROPHILS # (AUTO) 5.7 K/uL (1.8-8.9); NEUTROPHILS % (AUTO) 69.2 % (43.0-81.0); PLATELET COUNT (AUTO) 171 K/uL (150-450); RED BLOOD CELL COUNT(AUTO) 4.19 MIL/uL (4.5-6.0); RED CELL DISTRIBUTION WIDTH 16.6 % (11.5-15.0); WHITE BLOOD COUNT (AUTO) 8.3 K/uL (4.3-11.0)
[2023-10-30 07:40] LABS: CREATININE 0.8 mg/dL (0.6-1.3); MAGNESIUM 1.8 mg/dL (1.8-2.4); PHOSPHORUS 2.9 mg/dL (2.5-4.9); POTASSIUM 3.3 mmol/L (3.5-5.1)
[2023-10-30 08:00] VITALS: BP 116/56; TEMP 99.3; O2SAT 96
[2023-10-30] MEDS: FINASTERIDE (5 MG) 5 MG TABLET PO SCH (09:00)
[2023-10-30] MEDS ORDERED: POTASSIUM CHLORIDE 20 MEQ TAB.PRT.SR PO ONE (09:00)
[2023-10-30] MEDS: IV NS 0.9% 1,000 ML IV PRN (10:33)
[2023-10-30 12:34] LABS: CALCIUM, SERUM 8.1 mg/dL (8.5-10.1); POTASSIUM 3.4 mmol/L (3.5-5.1)
[2023-10-30 15:37] VITALS: BP 145/54; TEMP 98.8; O2SAT 96
[2023-10-30] MEDS: CIPROFLOXACIN HCL 500 MG TABLET PO SCH (18:15)
[2023-10-30] MEDS: ACETAMINOPHEN 325 MG TABLET PO PRN (18:16)
[2023-10-30 20:00] VITALS: BP 124/53; TEMP 99; O2SAT 95
[2023-10-30] MEDS ORDERED: GUAIFENESIN/D-METHORPHAN HB 5 ML UDC PO PRN (21:00)
[2023-10-31] MEDS: CIPROFLOXACIN HCL 500 MG TABLET PO SCH ×2 (05:53→17:23)
[2023-10-31 07:30] VITALS: BP 113/49; TEMP 98.8; O2SAT 97
[2023-10-31 08:10] LABS: CALCIUM, SERUM 8.3 mg/dL (8.5-10.1); CHLORIDE 98 mmol/L (98-107); CREATININE 0.8 mg/dL (0.6-1.3); GLUCOSE 96 mg/dL (74-106); MAGNESIUM 1.9 mg/dL (1.8-2.4); PHOSPHORUS 2.8 mg/dL (2.5-4.9); POTASSIUM 3.7 mmol/L (3.5-5.1); SODIUM SERUM 132 mmol/L (136-145); UREA NITROGEN, BLOOD 13 mg/dL (7-18)
[2023-10-31] MEDS: FINASTERIDE (5 MG) 5 MG TABLET PO SCH ×2 (08:19→08:21)
[2023-10-31 08:39] LABS: CARBON DIOXIDE 23 mmol/L (21-32)
[2023-10-31 09:37] LABS: THYROID STIMULATING HORMONE 2.629 uIU/mL (0.358-3.74)
[2023-10-31] MEDS: IV NS 0.9% 1,000 ML IV PRN (14:16)
[2023-10-31 16:00] VITALS: BP 117/57; TEMP 97.9; O2SAT 91
[2023-10-31 20:29] VITALS: BP 113/60; TEMP 98.6; O2SAT 95
[2023-11-01] MEDS: IV NS 0.9% 1,000 ML IV PRN (03:00)
[2023-11-01] MEDS: CIPROFLOXACIN HCL 500 MG TABLET PO SCH (05:47)
[2023-11-01 08:30] VITALS: BP 108/47; TEMP 98.2; O2SAT 95
[2023-11-01] MEDS: FINASTERIDE (5 MG) 5 MG TABLET PO SCH (09:00)
[2023-11-01] MEDS ORDERED: FINA5TAB3 PO (11:03)
[2023-11-01] MEDS ORDERED: CIPR-262 PO (11:03)
== END 2023-11-01 17:07 | disposition home health service (06) | DRG 463 ==
LOC: ER 20:07 → TRANSITION 10-29 07:48 → MED 10-29 17:49
PROVIDERS: ADMIT Internal Medicine; ATTEND Internal Medicine
DX: N39.0 Urinary tract infection, site not specified (principal); E87.1 Hypo-osmolality and hyponatremia; D50.9 Iron deficiency anemia, unspecified; E78.5 Hyperlipidemia, unspecified; N40.0 Benign prostatic hyperplasia without lower urinary tract symptoms; K21.9 Gastro-esophageal reflux disease without esophagitis; E87.6 Hypokalemia; Z86.718 Personal history of other venous thrombosis and embolism; Z87.440 Personal history of urinary (tract) infections; Z87.891 Personal history of nicotine dependence; Z88.0 Allergy status to penicillin; Z95.828 Presence of other vascular implants and grafts; Z98.41 Cataract extraction status, right eye; Z90.79 Acquired absence of other genital organ(s); K86.89 Other specified diseases of pancreas
CPT/HCPCS: 36415; 70450-TC; 71045-TC; 80048-TC; 80076-TC; 81001; 82533; 83540-TC; 83605-TC; 83735-TC; 84100-TC; 84443-TC; 84484-TC; 84550-TC; 85025-TC; 85730-TC; 87040-TC; 87086-TC; 97116-TC; 97530-TC; A4216; A4223; G0378; J0744; J7030